=== PATIENT | male | born 1945 | race Caucasian/White ===

== ENCOUNTER 2022-03-07 10:16 | Inpatient (IN) | payer MEDICARE, BC ==
[2022-03-07] MEDS ORDERED: Furosemide 40 MG/4 ML VIAL ONE (10:43)
[2022-03-07 10:47] LABS: Hemoglobin 10.5 g/dL (14.0-18.0); Mean Corpuscular HGB CONC 31.2 g/dL (32.0-36.0); Mean Corpuscular Hemoglobin 38.1 pg (27.0-31.0); Mean Platelet Volume 9.5 fL (7.4-10.4); Platelet Count 277 thou/uL (130-400); RBC Distribution Width 16.7 % (11.5-14.5); Red Blood Cell (RBC) Count 2.76 mill/uL (4.70-6.10); White Blood Cell (WBC) Count 4.5 thou/uL (4.8-10.8)
[2022-03-07 11:11] LABS: ALT (SGPT) 39 U/L (8-55); AST (SGOT) 105 U/L (5-34); Albumin 3.9 g/dL (3.4-4.8); Alkaline Phosphatase 69 U/L (40-110); Anion Gap 17 mmol/L (10-20); BUN (Urea Nitrogen) 88 mg/dL (8.4-25.7); Bilirubin, Total 1.4 mg/dL (0.2-1.2); Calc. Creatinine Clearance 0 mL/min (70-130); Calcium 9.3 mg/dL (7.8-10.44); Carbon Dioxide 25 mmol/L (23-31); Chloride 93 mmol/L (98-107); Globulin 3.4 g/dL (2.4-3.5); Glucose 172 mg/dL (83-110); Potassium 5.7 mmol/L (3.5-5.1); Protein, Total 7.3 g/dL (5.8-8.1); Sodium 129 mmol/L (136-145)
[2022-03-07 11:29] LABS: Band 2 % (5-11); Lymphocytes 17 % (21-51); MDiff Complete? YES; Macrocytosis MODERATE=16-30 cells (100X) (0-5/hpf); Monocytes 13 % (0-10); Neutrophil 68 % (42-75); Platelet Morphology Comment Appears Adequate; Polychromasia MODERATE = 3-4 cells (100X) (0-2/hpf)
[2022-03-07] MEDS ORDERED: Sodium Bicarb 50 MEQ/50 ML Abboject 8.4% SYRINGE ONE (12:06)
[2022-03-07] MEDS ORDERED: Sodium Bicarbonate 2.5 MEQ/5 ML VIAL ONE (12:06)
[2022-03-07 12:27] LABS: CKMB 2.4 ng/mL (0-6.6)
[2022-03-07 12:35] LABS: Bacteria/HPF None Seen HPF (None Seen); Bilirubin Negative (Negative); Blood, Urine 1+ (Negative); Clarity Clear (Clear); Glucose, Urine (Dipstick) Normal (Negative); Ketone, Urine Negative (Negative); Leukocyte Negative Leu/uL (Negative); Nitrite Negative (Negative); Protein, Urine (Dipstick) 20 mg/dL (Neg-Trace); RBC/HPF 0-3 HPF (0-3); Specific Gravity, Urine 1.012 (1.002-1.036); Squamous Epithelial 0-3 HPF (0-3); Urobilinogen Normal mg/dL (Less than 2); WBC/HPF 0-3 HPF (0-3)
[2022-03-07] MEDS ORDERED: LOKELMA 10 GM PACKET PO SCH (13:00)
[2022-03-07] MEDS ORDERED: Acetaminophen 325 MG TAB PO PRN (13:35)
[2022-03-07] MEDS ORDERED: Ondansetron PF 4 MG/2 ML Vial IVP PRN (13:35)
[2022-03-07] MEDS ORDERED: Heparin 5,000 UNITS/ML VIAL SC SCH (15:00)
[2022-03-07 16:04] LABS: Hemoglobin A1c 7.4 % (4.0-6.0)
[2022-03-07] MEDS ORDERED: Furosemide 20 MG/2 ML VIAL SLOW IVP SCH (17:00)
[2022-03-07] MEDS ORDERED: Furosemide 40 MG/4 ML VIAL SLOW IVP SCH (17:00)
[2022-03-07 18:20] LABS: ALT (SGPT) 37 U/L (8-55); AST (SGOT) 96 U/L (5-34); Albumin 3.8 g/dL (3.4-4.8); Alkaline Phosphatase 70 U/L (40-110); Anion Gap 15 mmol/L (10-20); BUN (Urea Nitrogen) 91 mg/dL (8.4-25.7); Bilirubin, Total 1.2 mg/dL (0.2-1.2); Calc. Creatinine Clearance 26 mL/min (70-130); Calcium 9.2 mg/dL (7.8-10.44); Carbon Dioxide 32 mmol/L (23-31); Chloride 91 mmol/L (98-107); Globulin 3.2 g/dL (2.4-3.5); Glucose 315 mg/dL (83-110); Magnesium 1.8 mg/dL (1.6-2.6); Sodium 133 mmol/L (136-145)
[2022-03-07 18:24] LABS: Troponin I 0.044 ng/mL (< 0.028)
[2022-03-07] MEDS: Heparin 5,000 UNITS/ML VIAL SC SCH ×2 (18:29→21:06)
[2022-03-07] MEDS: Metoprolol Tartrate 25 MG TAB PO SCH (21:06)
[2022-03-07] MEDS: Atorvastatin Calcium 40 MG TAB PO SCH (21:07)
[2022-03-08 00:10] LABS: SARS-CoV-2 PCR by NAA Not Detected (NotDetected)
[2022-03-08 04:47] LABS: ALT (SGPT) 36 U/L (8-55); AST (SGOT) 114 U/L (5-34); Albumin 3.7 g/dL (3.4-4.8); Alkaline Phosphatase 67 U/L (40-110); Anion Gap 16 mmol/L (10-20); BUN (Urea Nitrogen) 79 mg/dL (8.4-25.7); Bilirubin, Total 1.1 mg/dL (0.2-1.2); Calc. Creatinine Clearance 32 mL/min (70-130); Calcium 9.2 mg/dL (7.8-10.44); Carbon Dioxide 30 mmol/L (23-31); Chloride 94 mmol/L (98-107); Globulin 3.2 g/dL (2.4-3.5); Glucose 284 mg/dL (83-110); Potassium 5.4 mmol/L (3.5-5.1); Protein, Total 6.9 g/dL (5.8-8.1); Sodium 135 mmol/L (136-145)
[2022-03-08 04:55] LABS: Anisocytosis SLIGHT = 6-15 cells (100X) (0-5/hpf); Band 1 % (5-11); Basophilic Stippling SLIGHT = 1-2 cells (100X) (None Seen); Hemoglobin 10.3 g/dL (14.0-18.0); Hypochromia SLIGHT = 6-15 cells (100X) (0-5/hpf); Lymphocytes 12 % (21-51); MDiff Complete? YES; Mean Corpuscular HGB CONC 30.5 g/dL (32.0-36.0); Mean Corpuscular Hemoglobin 38.2 pg (27.0-31.0); Mean Platelet Volume 9.5 fL (7.4-10.4); Metamyelocyte 1 % (0-0); Monocytes 30 % (0-10); Neutrophil 53 % (42-75); Nucleated RBC 1 % (0); Platelet Count 267 thou/uL (130-400); Platelet Morphology Comment Appears Adequate; Polychromasia SLIGHT = 2-3 cells (100X) (0-2/hpf); RBC Distribution Width 16.5 % (11.5-14.5); Red Blood Cell (RBC) Count 2.69 mill/uL (4.70-6.10)
[2022-03-08] MEDS ORDERED: Furosemide 20 MG/2 ML VIAL SLOW IVP SCH (06:00)
[2022-03-08] MEDS ORDERED: Furosemide 40 MG/4 ML VIAL SLOW IVP SCH (06:00)
[2022-03-08 10:57] LABS: Actual Bicarbonate (HCO3a) 43.6 mEq/L (22-28); Base Excess (BEa) 9.8 mEq/L (-2.0 to +3.0); Calcium, Ionized (arterial) 1.26 mmol/L (1.12-1.30); Carboxyhemoglobin (COHb) 3.5 gm% (0.0-3.0); Hemoglobin (Hb) 11.2 g/dL (14.0-18.0); O2 Tension (PaO2), arterial 124.2 mmHg (> 70.0); Potassium - ABG Lab 5.32 mmol/L (3.70-5.30)
[2022-03-08 11:05] LABS: CO2 Tension 145.4 mmHg (35.0-45.0)
[2022-03-08 11:06] LABS: Puncture Site RRA
[2022-03-08] MEDS: Heparin 5,000 UNITS/ML VIAL SC SCH ×3 (11:21→22:00)
[2022-03-08] MEDS: Finasteride 5 MG TAB PO SCH (11:21)
[2022-03-08] MEDS: Clopidogrel Bisulfate 75 MG TAB PO SCH (11:21)
[2022-03-08] MEDS: Aspirin 81 mg Enteric Coated Tablet PO SCH (11:21)
[2022-03-08] MEDS: Metoprolol Tartrate 25 MG TAB PO SCH ×2 (11:21→22:01)
[2022-03-08] MEDS: Dextrose 5 %-0.45 % NaCl 1,000 ML IV SCH (12:15)
[2022-03-08 13:31] LABS: Actual Bicarbonate (HCO3a) 38.9 mEq/L (22-28); Base Excess (BEa) 7.9 mEq/L (-2.0 to +3.0); Calcium, Ionized (arterial) 1.24 mmol/L (1.12-1.30); Carboxyhemoglobin (COHb) 3.6 gm% (0.0-3.0); Hemoglobin (Hb) 10.4 g/dL (14.0-18.0); Potassium - ABG Lab 5.16 mmol/L (3.70-5.30)
[2022-03-08 13:32] LABS: CO2 Tension 105.5 mmHg (35.0-45.0); Puncture Site RRA; pH, Arterial 7.19 (7.35-7.45)
[2022-03-08 13:33] LABS: ALV-art Gradient 62.925 mmHg (0-20)
[2022-03-08 16:08] LABS: Actual Bicarbonate (HCO3a) 32.5 mEq/L (22-28); Calcium, Ionized (arterial) 1.23 mmol/L (1.12-1.30); Carboxyhemoglobin (COHb) 3.5 gm% (0.0-3.0); Hemoglobin (Hb) 10.7 g/dL (14.0-18.0); O2 Tension (PaO2), arterial 78.6 mmHg (> 70.0); Potassium - ABG Lab 4.81 mmol/L (3.70-5.30)
[2022-03-08 16:12] LABS: CO2 Tension 91.7 mmHg (35.0-45.0); Puncture Site RRA; pH, Arterial 7.17 (7.35-7.45)
[2022-03-08 16:13] LABS: ALV-art Gradient 163.275 mmHg (0-20)
[2022-03-08] MEDS: methylPREDNISolone Sod Succ 40 MG VIAL IVP SCH (17:39)
[2022-03-08] MEDS: Atorvastatin Calcium 40 MG TAB PO SCH (22:01)
[2022-03-09] MEDS: methylPREDNISolone Sod Succ 40 MG VIAL IVP SCH ×4 (00:55→18:37)
[2022-03-09 04:20] LABS: BUN (Urea Nitrogen) 56 mg/dL (8.4-25.7); Calc. Creatinine Clearance 49 mL/min (70-130); Calcium 8.7 mg/dL (7.8-10.44); Glucose 296 mg/dL (83-110)
[2022-03-09 04:29] LABS: Anion Gap 13 mmol/L (10-20); Carbon Dioxide 36 mmol/L (23-31); Chloride 93 mmol/L (98-107); Potassium 5.1 mmol/L (3.5-5.1); Sodium 137 mmol/L (136-145)
[2022-03-09] MEDS ORDERED: Dextrose 50% Abboject 50 ML SYRINGE SLOW IVP PRN (04:41)
[2022-03-09] MEDS ORDERED: Dextrose 5% in Water 1,000 ML IV PRN (04:41)
[2022-03-09] MEDS ORDERED: HumaLOG 300 UNITS/3 ML VIAL SC PRN (04:41)
[2022-03-09 05:09] LABS: Band 13 % (5-11); Hemoglobin 8.9 g/dL (14.0-18.0); Lymphocytes 10 % (21-51); MDiff Complete? YES; Mean Corpuscular HGB CONC 30.3 g/dL (32.0-36.0); Mean Corpuscular Hemoglobin 37.9 pg (27.0-31.0); Mean Platelet Volume 9.5 fL (7.4-10.4); Monocytes 11 % (0-10); Neutrophil 66 % (42-75); Nucleated RBC 1 % (0); Platelet Count 170 thou/uL (130-400); Red Blood Cell (RBC) Count 2.33 mill/uL (4.70-6.10); White Blood Cell (WBC) Count 7.4 thou/uL (4.8-10.8)
[2022-03-09] MEDS: Dextrose 5 %-0.45 % NaCl 1,000 ML IV SCH (05:15)
[2022-03-09] MEDS: HumaLOG 300 UNITS/3 ML VIAL SC PRN ×4 (05:51→21:04)
[2022-03-09 07:33] LABS: Actual Bicarbonate (HCO3a) 41.6 mEq/L (22-28); Base Excess (BEa) 13.7 mEq/L (-2.0 to +3.0); CO2 Tension 76.5 mmHg (35.0-45.0); Calcium, Ionized (arterial) 1.19 mmol/L (1.12-1.30); Carboxyhemoglobin (COHb) 2.2 gm% (0.0-3.0); Hemoglobin (Hb) 9.4 g/dL (14.0-18.0); O2 Tension (PaO2), arterial 66.1 mmHg (> 70.0); Potassium - ABG Lab 5.02 mmol/L (3.70-5.30); Puncture Site RRA; pH, Arterial 7.35 (7.35-7.45)
[2022-03-09 07:34] LABS: ALV-art Gradient 123.475 mmHg (0-20)
[2022-03-09] MEDS: Aspirin 81 mg Enteric Coated Tablet PO SCH (09:16)
[2022-03-09] MEDS: Finasteride 5 MG TAB PO SCH (09:16)
[2022-03-09] MEDS: Clopidogrel Bisulfate 75 MG TAB PO SCH (09:16)
[2022-03-09] MEDS: Heparin 5,000 UNITS/ML VIAL SC SCH ×3 (09:17→21:00)
[2022-03-09] MEDS: Metoprolol Tartrate 25 MG TAB PO SCH ×2 (09:17→20:58)
[2022-03-09] MEDS: Sodium Chloride 0.45% 1,000 ML IV SCH (12:37)
[2022-03-09] MEDS: Atorvastatin Calcium 40 MG TAB PO SCH (21:14)
[2022-03-10] MEDS: methylPREDNISolone Sod Succ 40 MG VIAL IVP SCH ×4 (00:12→21:50)
[2022-03-10] MEDS: Sodium Chloride 0.45% 1,000 ML IV SCH (05:37)
[2022-03-10] MEDS: HumaLOG 300 UNITS/3 ML VIAL SC PRN ×4 (06:20→23:17)
[2022-03-10 07:59] LABS: #Lymphocytes 0.3 thou/uL (1.20-3.40); #Monocytes 0.4 thou/uL (0.11-0.59); #Neutrophils 4.6 thou/uL (1.40-6.50); %Basophils 0.4 % (0.0-1.0); %Lymphocytes 4.9 % (21.0-51.0); %Monocytes 8.1 % (0.0-10.0); %Neutrophils 86.7 % (42.0-75.0); Hemoglobin 9.4 g/dL (14.0-18.0); Mean Corpuscular HGB CONC 30.5 g/dL (32.0-36.0); Mean Corpuscular Hemoglobin 38.1 pg (27.0-31.0); Mean Platelet Volume 9.8 fL (7.4-10.4); Platelet Count 178 thou/uL (130-400); Red Blood Cell (RBC) Count 2.45 mill/uL (4.70-6.10); White Blood Cell (WBC) Count 5.3 thou/uL (4.8-10.8)
[2022-03-10 08:21] LABS: Anion Gap 16 mmol/L (10-20); BUN (Urea Nitrogen) 46 mg/dL (8.4-25.7); Calc. Creatinine Clearance 53 mL/min (70-130); Calcium 9.2 mg/dL (7.8-10.44); Carbon Dioxide 30 mmol/L (23-31); Chloride 93 mmol/L (98-107); Glucose 327 mg/dL (83-110); Potassium 4.8 mmol/L (3.5-5.1); Sodium 134 mmol/L (136-145)
[2022-03-10] MEDS: Clopidogrel Bisulfate 75 MG TAB PO SCH (09:15)
[2022-03-10] MEDS: Finasteride 5 MG TAB PO SCH (09:16)
[2022-03-10] MEDS: Aspirin 81 mg Enteric Coated Tablet PO SCH (09:16)
[2022-03-10] MEDS: Heparin 5,000 UNITS/ML VIAL SC SCH ×3 (09:17→21:51)
[2022-03-10] MEDS: Metoprolol Tartrate 25 MG TAB PO SCH ×2 (09:17→21:51)
[2022-03-10] MEDS: Atorvastatin Calcium 40 MG TAB PO SCH (21:51)
[2022-03-11 05:03] LABS: Anion Gap 12 mmol/L (10-20); BUN (Urea Nitrogen) 37 mg/dL (8.4-25.7); Calc. Creatinine Clearance 67 mL/min (70-130); Carbon Dioxide 34 mmol/L (23-31); Chloride 99 mmol/L (98-107); Glucose 244 mg/dL (83-110); Potassium 4.7 mmol/L (3.5-5.1); Sodium 140 mmol/L (136-145)
[2022-03-11] MEDS: Sodium Chloride 0.45% 1,000 ML IV SCH (05:16)
[2022-03-11] MEDS: methylPREDNISolone Sod Succ 40 MG VIAL IVP SCH (05:16)
[2022-03-11] MEDS: HumaLOG 300 UNITS/3 ML VIAL SC PRN ×3 (05:47→18:01)
[2022-03-11] MEDS: Metoprolol Tartrate 25 MG TAB PO SCH ×2 (08:42→20:08)
[2022-03-11] MEDS: Aspirin 81 mg Enteric Coated Tablet PO SCH (08:42)
[2022-03-11] MEDS: Clopidogrel Bisulfate 75 MG TAB PO SCH (08:42)
[2022-03-11] MEDS: Finasteride 5 MG TAB PO SCH (08:42)
[2022-03-11] MEDS: Heparin 5,000 UNITS/ML VIAL SC SCH ×3 (08:42→20:08)
[2022-03-11] MEDS ORDERED: Tamsulosin HCl 0.4 MG CAP PO SCH (11:30)
[2022-03-11] MEDS: Atorvastatin Calcium 40 MG TAB PO SCH (20:08)
[2022-03-11] MEDS: Insulin Glargine 30 UNITS/0.3 ML VIAL SC SCH (20:09)
[2022-03-12] MEDS: Sodium Chloride 0.45% 1,000 ML IV SCH (02:03)
[2022-03-12] MEDS: HumaLOG 300 UNITS/3 ML VIAL SC PRN ×3 (06:08→18:00)
[2022-03-12] MEDS: Aspirin 81 mg Enteric Coated Tablet PO SCH (09:21)
[2022-03-12] MEDS: predniSONE 20 MG TAB PO SCH (09:22)
[2022-03-12] MEDS: Metoprolol Tartrate 25 MG TAB PO SCH ×2 (09:22→21:52)
[2022-03-12] MEDS: Tamsulosin HCl 0.4 MG CAP PO SCH (09:22)
[2022-03-12] MEDS: Heparin 5,000 UNITS/ML VIAL SC SCH ×3 (09:22→21:52)
[2022-03-12] MEDS: Finasteride 5 MG TAB PO SCH (09:22)
[2022-03-12] MEDS: Clopidogrel Bisulfate 75 MG TAB PO SCH (09:22)
[2022-03-12] MEDS: Lisinopril 10 MG TAB PO SCH (09:22)
[2022-03-12] MEDS: Atorvastatin Calcium 40 MG TAB PO SCH (21:52)
[2022-03-12] MEDS: Insulin Glargine 30 UNITS/0.3 ML VIAL SC SCH (21:52)
[2022-03-13] MEDS: HumaLOG 300 UNITS/3 ML VIAL SC PRN ×3 (05:50→21:27)
[2022-03-13] MEDS: Finasteride 5 MG TAB PO SCH (09:57)
[2022-03-13] MEDS: Metoprolol Tartrate 25 MG TAB PO SCH ×2 (09:57→21:27)
[2022-03-13] MEDS: Aspirin 81 mg Enteric Coated Tablet PO SCH (09:57)
[2022-03-13] MEDS: Heparin 5,000 UNITS/ML VIAL SC SCH (09:57)
[2022-03-13] MEDS: Clopidogrel Bisulfate 75 MG TAB PO SCH (09:57)
[2022-03-13] MEDS: Tamsulosin HCl 0.4 MG CAP PO SCH (09:57)
[2022-03-13] MEDS: predniSONE 20 MG TAB PO SCH (09:57)
[2022-03-13] MEDS: Lisinopril 10 MG TAB PO SCH (09:57)
[2022-03-13] MEDS ORDERED: Furosemide 40 MG/4 ML VIAL SLOW IVP SCH (12:30)
[2022-03-13 15:08] LABS: Anion Gap 13 mmol/L (10-20); BUN (Urea Nitrogen) 38 mg/dL (8.4-25.7); Calc. Creatinine Clearance 43 mL/min (70-130); Calcium 9.4 mg/dL (7.8-10.44); Carbon Dioxide 30 mmol/L (23-31); Chloride 98 mmol/L (98-107); Glucose 401 mg/dL (83-110); Potassium 4.4 mmol/L (3.5-5.1); Sodium 137 mmol/L (136-145)
[2022-03-13 15:22] LABS: Band 8 % (5-11); Hemoglobin 9.7 g/dL (14.0-18.0); Hypochromia SLIGHT = 6-15 cells (100X) (0-5/hpf); Lymphocytes 7 % (21-51); MDiff Complete? YES; Macrocytosis MODERATE=16-30 cells (100X) (0-5/hpf); Mean Corpuscular HGB CONC 30.9 g/dL (32.0-36.0); Mean Corpuscular Hemoglobin 38.2 pg (27.0-31.0); Mean Platelet Volume 10.9 fL (7.4-10.4); Monocytes 4 % (0-10); Neutrophil 81 % (42-75); Nucleated RBC 1 % (0); Ovalocytes SLIGHT = 2-5 cells (100X) (0-1/hpf); Platelet Count 135 thou/uL (130-400); Platelet Morphology Comment Appears Adequate; Polychromasia SLIGHT = 2-3 cells (100X) (0-2/hpf); RBC Distribution Width 15.3 % (11.5-14.5); Red Blood Cell (RBC) Count 2.54 mill/uL (4.70-6.10); Stomatocytes SLIGHT = 2-5 cells (100X) (0-1/hpf); White Blood Cell (WBC) Count 2.8 thou/uL (4.8-10.8)
[2022-03-13 15:25] VITALS: BMI 22.4
[2022-03-13] MEDS ORDERED: Insulin Glargine 30 UNITS/0.3 ML VIAL SC SCH (21:00)
[2022-03-13] MEDS: Atorvastatin Calcium 40 MG TAB PO SCH (21:27)
[2022-03-14] MEDS: HumaLOG 300 UNITS/3 ML VIAL SC PRN ×2 (05:38→11:24)
[2022-03-14 05:39] LABS: Hemoglobin 9.3 g/dL (14.0-18.0); Mean Corpuscular HGB CONC 31.3 g/dL (32.0-36.0); Mean Corpuscular Hemoglobin 38.6 pg (27.0-31.0); Mean Platelet Volume 10.6 fL (7.4-10.4); Platelet Count 127 thou/uL (130-400); RBC Distribution Width 15.4 % (11.5-14.5); Red Blood Cell (RBC) Count 2.42 mill/uL (4.70-6.10)
[2022-03-14 05:40] LABS: Anion Gap 15 mmol/L (10-20); BUN (Urea Nitrogen) 39 mg/dL (8.4-25.7); Calc. Creatinine Clearance 46 mL/min (70-130); Calcium 9.1 mg/dL (7.8-10.44); Carbon Dioxide 30 mmol/L (23-31); Chloride 101 mmol/L (98-107); Glucose 293 mg/dL (83-110); Potassium 4.6 mmol/L (3.5-5.1); Sodium 141 mmol/L (136-145)
[2022-03-14 05:42] LABS: Band 3 % (5-11); Lymphocytes 27 % (21-51); MDiff Complete? YES; Macrocytosis MODERATE=16-30 cells (100X) (0-5/hpf); Monocytes 23 % (0-10); Neutrophil 47 % (42-75); Nucleated RBC 1 % (0)
[2022-03-14] MEDS: Aspirin 81 mg Enteric Coated Tablet PO SCH (08:35)
[2022-03-14] MEDS: Metoprolol Tartrate 25 MG TAB PO SCH (08:35)
[2022-03-14] MEDS: Finasteride 5 MG TAB PO SCH (08:35)
[2022-03-14] MEDS: Lisinopril 10 MG TAB PO SCH (08:35)
[2022-03-14] MEDS: predniSONE 20 MG TAB PO SCH (08:35)
[2022-03-14] MEDS: Clopidogrel Bisulfate 75 MG TAB PO SCH (08:35)
[2022-03-14] MEDS: Tamsulosin HCl 0.4 MG CAP PO SCH (08:35)
[2022-03-14 11:52] VITALS: BP 120/58; TEMP 97.8
[2022-03-14 15:59] LABS: SARS-CoV-2 PCR by NAA Not Detected (NotDetected)
== END 2022-03-14 15:13 | disposition home health service (06) | DRG 291 ==
LOC: ERS 10:16 → SUATTDRO 10:16 → 2NO 13:17 → CCU 03-08 11:57 → 2NO 03-10 14:24
PROVIDERS: ADMIT Emergency Medicine; ATTEND Emergency Medicine
PROC: 5A09357 Assistance with Respiratory Ventilation, Less than 24 Consecutive Hours, Continuous Positive Airway Pressure (ICD-10-PCS; principal; 2022-03-08)
DX: I11.0 Hypertensive heart disease with heart failure (principal); I50.43 Acute on chronic combined systolic (congestive) and diastolic (congestive) heart failure; G93.41 Metabolic encephalopathy; J96.22 Acute and chronic respiratory failure with hypercapnia; J96.21 Acute and chronic respiratory failure with hypoxia; J44.1 Chronic obstructive pulmonary disease with (acute) exacerbation; I47.2 Ventricular tachycardia; N17.9 Acute kidney failure, unspecified; E87.1 Hypo-osmolality and hyponatremia; I42.9 Cardiomyopathy, unspecified; Z20.822 Contact with and (suspected) exposure to COVID-19; E78.5 Hyperlipidemia, unspecified; I25.10 Atherosclerotic heart disease of native coronary artery without angina pectoris; F17.210 Nicotine dependence, cigarettes, uncomplicated; E87.5 Hyperkalemia; E11.65 Type 2 diabetes mellitus with hyperglycemia; N40.0 Benign prostatic hyperplasia without lower urinary tract symptoms; E11.51 Type 2 diabetes mellitus with diabetic peripheral angiopathy without gangrene; I34.0 Nonrheumatic mitral (valve) insufficiency; Z95.810 Presence of automatic (implantable) cardiac defibrillator; Z79.899 Other long term (current) drug therapy; Z79.82 Long term (current) use of aspirin; Z86.74 Personal history of sudden cardiac arrest; Z79.02 Long term (current) use of antithrombotics/antiplatelets; Z98.42 Cataract extraction status, left eye; Z98.41 Cataract extraction status, right eye; I25.2 Old myocardial infarction; Z71.6 Tobacco abuse counseling
CPT/HCPCS: 36415; 36416; 36600; 70450; 71045; 76770; 80048; 80053; 81003; 81015; 82553; 82805; 83036; 83735; 83880; 84443; 84484; 85025; 87040; 93005; 93010; 93306; 93970; 94640; 94660; 96374; 96375; J1644; J1815; J1940; J2920; J3475; J3490; J7042; J7512; J7620; U0003; U0005

== ENCOUNTER 2022-03-17 08:49 | Inpatient (IN) | payer MEDICARE, BC ==
[2022-03-17 09:49] LABS: Mean Corpuscular HGB CONC 30.7 g/dL (32.0-36.0); Mean Corpuscular Hemoglobin 37.8 pg (27.0-31.0); Mean Platelet Volume 10.1 fL (7.4-10.4); Platelet Count 190 thou/uL (130-400); RBC Distribution Width 15.3 % (11.5-14.5); Red Blood Cell (RBC) Count 2.92 mill/uL (4.70-6.10); White Blood Cell (WBC) Count 11.5 thou/uL (4.8-10.8)
[2022-03-17 10:01] LABS: INR-International Normal Ratio 1.1; Prothrombin Time 14.7 sec (12.0-14.7)
[2022-03-17 10:16] LABS: ALT (SGPT) 44 U/L (8-55); AST (SGOT) 45 U/L (5-34); Albumin 3.9 g/dL (3.4-4.8); Alkaline Phosphatase 61 U/L (40-110); Anion Gap 15 mmol/L (10-20); BUN (Urea Nitrogen) 31 mg/dL (8.4-25.7); Bilirubin, Total 1.1 mg/dL (0.2-1.2); Calc. Creatinine Clearance 0 mL/min (70-130); Calcium 9.4 mg/dL (7.8-10.44); Carbon Dioxide 31 mmol/L (23-31); Chloride 97 mmol/L (98-107); Globulin 2.6 g/dL (2.4-3.5); Glucose 200 mg/dL (83-110); Lipase 29 U/L (8-78); Magnesium 1.2 mg/dL (1.6-2.6); Potassium 4.1 mmol/L (3.5-5.1); Protein, Total 6.5 g/dL (5.8-8.1); Sodium 139 mmol/L (136-145)
[2022-03-17 10:22] LABS: Anisocytosis SLIGHT = 6-15 cells (100X) (0-5/hpf); Lymphocytes 5 % (21-51); MDiff Complete? YES; Macrocytosis SLIGHT = 6-15 cells (100X) (0-5/hpf); Monocytes 22 % (0-10); Neutrophil 71 % (42-75); Polychromasia SLIGHT = 2-3 cells (100X) (0-2/hpf)
[2022-03-17 10:44] LABS: CKMB 2.1 ng/mL (0-6.6)
[2022-03-17 11:06] LABS: Specific Gravity, Urine 1.025 (1.005-1.030); pH, Urine 6.5 (5.0-9.0)
[2022-03-17 11:07] LABS: Clarity Hazy (Clear); Glucose, Urine (Dipstick) Unable to Interpret mg/dL (Negative); Ketone, Urine Unable to Interpret mg/dL (Negative); Leukocyte Unable to Interpret (Negative); Nitrite Unable to Interpret (Negative); Protein, Urine (Dipstick) Unable to Interpret mg/dL (Neg-Trace)
[2022-03-17 11:08] LABS: Bacteria/HPF 1+ HPF (None Seen); Bilirubin Unable to Interpret (Negative); Blood, Urine Unable to Interpret (Negative); RBC/HPF Greater than 50 HPF (0-3); Squamous Epithelial None Seen HPF (0-3); Urobilinogen UNABLE TO INTERPRET mg/dL (Less than 2)
[2022-03-17] MEDS ORDERED: Magnesium 2 GM/50 ML BAG (IN WATER) ONE (13:10)
[2022-03-17] MEDS ORDERED: cefTRIAXone\\ROCEPHIN 1 GM VIAL ONE (13:10)
[2022-03-17] MEDS ORDERED: Ondansetron PF 4 MG/2 ML Vial IVP PRN (14:22)
[2022-03-17] MEDS ORDERED: Acetaminophen 650 MG Suppository PR PRN (14:22)
[2022-03-17] MEDS ORDERED: Acetaminophen 325 MG TAB PO PRN (14:22)
[2022-03-17] MEDS ORDERED: Ondansetron ODT 4 MG TAB PO PRN (14:22)
[2022-03-17] MEDS ORDERED: Dextrose 50% Abboject 50 ML SYRINGE SLOW IVP PRN (15:33)
[2022-03-17] MEDS ORDERED: Dextrose 5% in Water 1,000 ML IV PRN (15:33)
[2022-03-17 15:59] LABS: Hemoglobin 9.6 g/dL (14.0-18.0)
[2022-03-17] MEDS: Insulin Regular 300 UNITS/3 ML VIAL SC PRN ×2 (18:17→21:29)
[2022-03-17 21:15] LABS: Hemoglobin 8.9 g/dL (14.0-18.0)
[2022-03-17] MEDS: Atorvastatin Calcium 40 MG TAB PO SCH (21:27)
[2022-03-18 02:26] LABS: Hemoglobin 8.7 g/dL (14.0-18.0)
[2022-03-18 02:35] LABS: Hemoglobin 8.8 g/dL (14.0-18.0); Mean Corpuscular HGB CONC 31.4 g/dL (32.0-36.0); Mean Corpuscular Hemoglobin 38.9 pg (27.0-31.0); Mean Platelet Volume 10.4 fL (7.4-10.4); Platelet Count 146 thou/uL (130-400); Red Blood Cell (RBC) Count 2.25 mill/uL (4.70-6.10); White Blood Cell (WBC) Count 5.1 thou/uL (4.8-10.8)
[2022-03-18 02:50] LABS: Anion Gap 10 mmol/L (10-20); BUN (Urea Nitrogen) 37 mg/dL (8.4-25.7); Calc. Creatinine Clearance 48 mL/min (70-130); Calcium 8.8 mg/dL (7.8-10.44); Carbon Dioxide 33 mmol/L (23-31); Chloride 99 mmol/L (98-107); Glucose 278 mg/dL (83-110); Potassium 4.3 mmol/L (3.5-5.1); Sodium 138 mmol/L (136-145)
[2022-03-18 03:16] LABS: Band 16 % (5-11); Hypochromia SLIGHT = 6-15 cells (100X) (0-5/hpf); Lymphocytes 19 % (21-51); MDiff Complete? YES; Macrocytosis SLIGHT = 6-15 cells (100X) (0-5/hpf); Monocytes 9 % (0-10); Neutrophil 54 % (42-75); Nucleated RBC 0 % (0); Platelet Morphology Comment Appears Adequate; Reactive Lymphocytes 2 % (0-10)
[2022-03-18] MEDS: Insulin Regular 300 UNITS/3 ML VIAL SC PRN ×4 (06:23→20:46)
[2022-03-18] MEDS: predniSONE 5 MG TAB PO SCH (08:03)
[2022-03-18] MEDS: Furosemide 20 MG TAB PO SCH (08:03)
[2022-03-18 08:22] LABS: Hemoglobin 9.6 g/dL (14.0-18.0)
[2022-03-18] MEDS ORDERED: Aspirin 81 mg Enteric Coated Tablet PO SCH (09:30)
[2022-03-18 09:49] LABS: Iron 58 ug/dL (65-175); Iron Binding Capacity, Total 230 mcg/dL (261-462)
[2022-03-18 10:14] LABS: Ferritin 166.39 ng/mL (22-322)
[2022-03-18 18:02] LABS: Glucose 540 mg/dL (83-110)
[2022-03-18 20:14] LABS: Hemoglobin 8.4 g/dL (14.0-18.0)
[2022-03-18 20:28] LABS: Glucose POC Confirmation 545 mg/dl (83-110)
[2022-03-18] MEDS: Atorvastatin Calcium 40 MG TAB PO SCH (20:46)
[2022-03-18] MEDS: cefTRIAXone\\ROCEPHIN 1 GM in Sodium Chloride 0.9% 100 ML IVPB SCH (20:46)
[2022-03-18] MEDS ORDERED: Insulin Glargine 30 UNITS/0.3 ML VIAL SC SCH (21:00)
[2022-03-19 06:04] LABS: Anion Gap 12 mmol/L (10-20); BUN (Urea Nitrogen) 31 mg/dL (8.4-25.7); Calc. Creatinine Clearance 64 mL/min (70-130); Calcium 8.5 mg/dL (7.8-10.44); Carbon Dioxide 29 mmol/L (23-31); Chloride 101 mmol/L (98-107); Glucose 163 mg/dL (83-110); Potassium 4.3 mmol/L (3.5-5.1); Sodium 138 mmol/L (136-145)
[2022-03-19 07:07] LABS: Hemoglobin 8.8 g/dL (14.0-18.0); Mean Corpuscular HGB CONC 31.7 g/dL (32.0-36.0); Mean Corpuscular Hemoglobin 39.8 pg (27.0-31.0); Mean Platelet Volume 10.3 fL (7.4-10.4); Platelet Count 138 thou/uL (130-400); RBC Distribution Width 14.4 % (11.5-14.5); White Blood Cell (WBC) Count 3.9 thou/uL (4.8-10.8)
[2022-03-19 08:22] LABS: Band 4 % (5-11); Eosinophils 1 % (0-10); Lymphocytes 18 % (21-51); MDiff Complete? YES; Macrocytosis MODERATE=16-30 cells (100X) (0-5/hpf); Monocytes 23 % (0-10); Neutrophil 50 % (42-75); Ovalocytes SLIGHT = 2-5 cells (100X) (0-1/hpf); Platelet Morphology Comment Appears Adequate; Polychromasia SLIGHT = 2-3 cells (100X) (0-2/hpf); Reactive Lymphocytes 4 % (0-10)
[2022-03-19] MEDS: predniSONE 5 MG TAB PO SCH (09:00)
[2022-03-19] MEDS: Aspirin 81 mg Enteric Coated Tablet PO SCH (09:01)
[2022-03-19] MEDS: Furosemide 20 MG TAB PO SCH (09:01)
[2022-03-19] MEDS: Insulin Regular 300 UNITS/3 ML VIAL SC PRN ×3 (11:00→21:42)
[2022-03-19 14:13] VITALS: BMI 21.5
[2022-03-19] MEDS ORDERED: Electrolyte Replacement Protocol FS PRN (15:15)
[2022-03-19] MEDS ORDERED: Electrolyte Replacement Protocol 1 EACH FS SCH (15:15)
[2022-03-19] MEDS ORDERED: Metoprolol Tartrate 25 MG TAB PO SCH (15:15)
[2022-03-19 16:30] LABS: Troponin I 0.024 ng/mL (< 0.028)
[2022-03-19 16:33] LABS: Magnesium 1.7 mg/dL (1.6-2.6)
[2022-03-19] MEDS ORDERED: Magnesium Sulfate 4 GM in Sodium Chloride 0.9% 250 ML 250 ML IVPB SCH (17:00)
[2022-03-19] MEDS: cefTRIAXone\\ROCEPHIN 1 GM in Sodium Chloride 0.9% 100 ML IVPB SCH (17:05)
[2022-03-19] MEDS ORDERED: Insulin Regular 300 UNITS/3 ML VIAL SC PRN (17:12)
[2022-03-19] MEDS ORDERED: Insulin Glargine 30 UNITS/0.3 ML VIAL SC SCH (17:30)
[2022-03-19] MEDS: Magnesium 2 GM/50 ML(in water) 2 GM in Premix Bag 1 BAG IVPB SCH ×2 (17:31→18:13)
[2022-03-19] MEDS: Folic Acid 1 MG TAB PO SCH (21:42)
[2022-03-19] MEDS: Metoprolol Tartrate 25 MG TAB PO SCH (21:42)
[2022-03-19] MEDS: Atorvastatin Calcium 40 MG TAB PO SCH (21:42)
[2022-03-20 05:50] LABS: Anion Gap 11 mmol/L (10-20); BUN (Urea Nitrogen) 25 mg/dL (8.4-25.7); Calc. Creatinine Clearance 72 mL/min (70-130); Calcium 8.9 mg/dL (7.8-10.44); Carbon Dioxide 34 mmol/L (23-31); Chloride 99 mmol/L (98-107); Glucose 68 mg/dL (83-110); Magnesium 2.3 mg/dL (1.6-2.6); Potassium 4.3 mmol/L (3.5-5.1); Sodium 140 mmol/L (136-145)
[2022-03-20 06:06] LABS: Eosinophils 2 % (0-10); Hemoglobin 8.6 g/dL (14.0-18.0); Hypochromia SLIGHT = 6-15 cells (100X) (0-5/hpf); Lymphocytes 19 % (21-51); MDiff Complete? YES; Macrocytosis SLIGHT = 6-15 cells (100X) (0-5/hpf); Mean Corpuscular HGB CONC 31.4 g/dL (32.0-36.0); Mean Corpuscular Hemoglobin 38.8 pg (27.0-31.0); Mean Platelet Volume 10.1 fL (7.4-10.4); Monocytes 16 % (0-10); Neutrophil 61 % (42-75); Platelet Count 166 thou/uL (130-400); Platelet Morphology Comment Appears Adequate; RBC Distribution Width 14.5 % (11.5-14.5); Reactive Lymphocytes 2 % (0-10); Red Blood Cell (RBC) Count 2.22 mill/uL (4.70-6.10); White Blood Cell (WBC) Count 3.3 thou/uL (4.8-10.8)
[2022-03-20] MEDS ORDERED: predniSONE 5 MG TAB PO SCH (08:00)
[2022-03-20] MEDS ORDERED: Finasteride 5 MG TAB PO SCH (09:00)
[2022-03-20] MEDS: Aspirin 81 mg Enteric Coated Tablet PO SCH (09:08)
[2022-03-20] MEDS: Metoprolol Tartrate 25 MG TAB PO SCH (09:08)
[2022-03-20] MEDS: Folic Acid 1 MG TAB PO SCH (09:09)
[2022-03-20] MEDS: Furosemide 20 MG TAB PO SCH (09:09)
[2022-03-20 11:19] VITALS: TEMP 98.1
[2022-03-20] MEDS ORDERED: cefTRIAXone\\ROCEPHIN 1 GM in Sodium Chloride 0.9% 100 ML IVPB SCH (14:45)
[2022-03-20 15:08] VITALS: BP 143/63
[2022-03-20] MEDS ORDERED: Insulin Glargine 30 UNITS/0.3 ML VIAL SC SCH (21:00)
[2022-03-25] MEDS ORDERED: predniSONE 5 MG TAB PO SCH (08:00)
== END 2022-03-20 17:30 | disposition home or self-care (01) | DRG 689 ==
LOC: ERS 08:49 → 2SW 14:22 → OBSVTOIN 03-19 09:28
PROVIDERS: ADMIT Family Medicine; ATTEND Internal Medicine
PROC: 0T9B70Z Drainage of Bladder with Drainage Device, Via Natural or Artificial Opening (ICD-10-PCS; principal; 2022-03-17)
DX: N39.0 Urinary tract infection, site not specified (principal); I50.33 Acute on chronic diastolic (congestive) heart failure; J96.01 Acute respiratory failure with hypoxia; I47.2 Ventricular tachycardia; D62 Acute posthemorrhagic anemia; I13.0 Hypertensive heart and chronic kidney disease with heart failure and stage 1 through stage 4 chronic kidney disease, or unspecified chronic kidney disease; E78.5 Hyperlipidemia, unspecified; E11.51 Type 2 diabetes mellitus with diabetic peripheral angiopathy without gangrene; I25.10 Atherosclerotic heart disease of native coronary artery without angina pectoris; I25.5 Ischemic cardiomyopathy; F17.210 Nicotine dependence, cigarettes, uncomplicated; J44.9 Chronic obstructive pulmonary disease, unspecified; R31.0 Gross hematuria; I45.10 Unspecified right bundle-branch block; B96.20 Unspecified Escherichia coli [E. coli] as the cause of diseases classified elsewhere; N40.1 Benign prostatic hyperplasia with lower urinary tract symptoms; E11.22 Type 2 diabetes mellitus with diabetic chronic kidney disease; E83.42 Hypomagnesemia; D63.1 Anemia in chronic kidney disease; N18.30 Chronic kidney disease, stage 3 unspecified; Z79.82 Long term (current) use of aspirin; Z79.899 Other long term (current) drug therapy; Z79.84 Long term (current) use of oral hypoglycemic drugs; Z79.4 Long term (current) use of insulin; Z95.5 Presence of coronary angioplasty implant and graft; Z95.810 Presence of automatic (implantable) cardiac defibrillator; Z98.890 Other specified postprocedural states; I25.2 Old myocardial infarction
CPT/HCPCS: 36415; 36416; 51703; 71045; 74176; 80048; 80053; 81003; 81015; 82553; 82607; 82728; 82746; 83540; 83550; 83690; 83735; 83880; 84484; 85025; 85610; 85730; 86850; 86900; 86901; 87077; 87086; 87186; 93005; 94760; 96365; 96367; 96376; G0378; J0696; J1815; J3475; J3490; J7512

== ENCOUNTER 2022-03-25 04:06 | Inpatient (IN) | payer MEDICARE, BC ==
[2022-03-25 05:00] LABS: ALT (SGPT) 24 U/L (8-55); AST (SGOT) 29 U/L (5-34); Albumin 3.2 g/dL (3.4-4.8); Alkaline Phosphatase 63 U/L (40-110); Anion Gap 12 mmol/L (10-20); BUN (Urea Nitrogen) 40 mg/dL (8.4-25.7); Bilirubin, Total 0.7 mg/dL (0.2-1.2); Calc. Creatinine Clearance 0 mL/min (70-130); Calcium 8.7 mg/dL (7.8-10.44); Carbon Dioxide 28 mmol/L (23-31); Chloride 97 mmol/L (98-107); Globulin 2.8 g/dL (2.4-3.5); Glucose 365 mg/dL (83-110); Lipase 26 U/L (8-78); Potassium 4.4 mmol/L (3.5-5.1); Sodium 133 mmol/L (136-145)
[2022-03-25 05:12] LABS: Hemoglobin 8.8 g/dL (14.0-18.0); Mean Corpuscular HGB CONC 30.8 g/dL (32.0-36.0); Mean Corpuscular Hemoglobin 36.9 pg (27.0-31.0); Mean Platelet Volume 9.6 fL (7.4-10.4); Platelet Count 332 thou/uL (130-400); RBC Distribution Width 14.4 % (11.5-14.5)
[2022-03-25 05:14] LABS: White Blood Cell (WBC) Count 42.7 thou/uL (4.8-10.8)
[2022-03-25 05:17] LABS: Band 38 % (5-11); MDiff Complete? YES; Macrocytosis MODERATE=16-30 cells (100X) (0-5/hpf); Metamyelocyte 1 % (0-0); Monocytes 3 % (0-10); Myelocyte 1 % (0-0); Neutrophil 56 % (42-75); Nucleated RBC 2 % (0)
[2022-03-25 05:51] LABS: CKMB 0.7 ng/mL (0-6.6)
[2022-03-25] MEDS ORDERED: Cefepime 2 GM VIAL ONE (05:51)
[2022-03-25] MEDS ORDERED: Vancomycin 1 GM in Premix Bag 1 BAG IVPB SCH (06:30)
[2022-03-25] MEDS ORDERED: Sodium Chloride 0.9% 1,000 ML IV SCH ×2 (06:30→09:00)
[2022-03-25] MEDS ORDERED: Vancomycin 1 GM/200 ML BAG ONE (07:18)
[2022-03-25 07:58] LABS: Troponin I 0.108 ng/mL (< 0.028)
[2022-03-25] MEDS ORDERED: Dextrose 5% in Water 1,000 ML IV PRN (08:57)
[2022-03-25] MEDS ORDERED: Dextrose 50% Abboject 50 ML SYRINGE SLOW IVP PRN (08:57)
[2022-03-25] MEDS ORDERED: Acetaminophen 325 MG TAB PO PRN (08:57)
[2022-03-25 09:05] LABS: Lactic Acid 2.6 mmol/L (0.5-2.2)
[2022-03-25] MEDS ORDERED: Metoclopramide HCl 10 MG/2 ML VIAL IVP PRN (09:08)
[2022-03-25 09:44] LABS: Magnesium 1.3 mg/dL (1.6-2.6)
[2022-03-25 10:15] LABS: Bacteria/HPF 3+ HPF (None Seen); Bilirubin Negative (Negative); Blood, Urine 1+ (Negative); Clarity Clear (Clear); Glucose, Urine (Dipstick) 300 mg/dL (Negative); Ketone, Urine Negative (Negative); Leukocyte Negative Leu/uL (Negative); Nitrite Negative (Negative); Protein, Urine (Dipstick) 30 mg/dL (Neg-Trace); Specific Gravity, Urine 1.015 (1.002-1.036); Squamous Epithelial 0-3 HPF (0-3); Urobilinogen Normal mg/dL (Less than 2); WBC/HPF 0-3 HPF (0-3)
[2022-03-25] MEDS ORDERED: Magnesium 2 GM/50 ML(in water) 2 GM in Premix Bag 1 BAG IVPB SCH (10:45)
[2022-03-25] MEDS ORDERED: Electrolyte Replacement Protocol 1 EACH FS SCH (10:45)
[2022-03-25 11:01] LABS: Troponin I 0.119 ng/mL (< 0.028)
[2022-03-25 11:40] VITALS: BMI 21.7
[2022-03-25] MEDS ORDERED: Sodium Chloride 0.9% 500 ML IV SCH ×2 (12:15→13:15)
[2022-03-25] MEDS ORDERED: Magnesium Sulfate In Water 4 GM in Premix Bag 1 BAG IVPB SCH (13:00)
[2022-03-25] MEDS: Sodium Chloride 0.9% 1,000 ML IV SCH ×2 (13:26→20:03)
[2022-03-25] MEDS: Finasteride 5 MG TAB PO SCH (13:52)
[2022-03-25] MEDS: Insulin Glargine 30 UNITS/0.3 ML VIAL SC SCH (13:52)
[2022-03-25] MEDS ORDERED: Norepinephrine 8 MG/0.9% NS 250 ML IVPB PRN (13:57)
[2022-03-25] MEDS ORDERED: Cefepime 2 GM in Sodium Chloride 0.9% 100 ML IVPB SCH (15:00)
[2022-03-25 15:25] LABS: INR-International Normal Ratio 1.7; PTT 38.6 sec (22.9-36.1); Prothrombin Time 20.5 sec (12.0-14.7)
[2022-03-25] MEDS ORDERED: Insulin Glargine 30 UNITS/0.3 ML VIAL SC SCH (17:15)
[2022-03-25] MEDS: Cefepime 2 GM in Sodium Chloride 0.9% 100 ML IVPB SCH (17:21)
[2022-03-25 17:48] LABS: Anion Gap 15 mmol/L (10-20); BUN (Urea Nitrogen) 50 mg/dL (8.4-25.7); Calc. Creatinine Clearance 35 mL/min (70-130); Calcium 7.9 mg/dL (7.8-10.44); Carbon Dioxide 22 mmol/L (23-31); Chloride 98 mmol/L (98-107); Glucose 412 mg/dL (83-110); Potassium 5.1 mmol/L (3.5-5.1); Sodium 130 mmol/L (136-145)
[2022-03-25] MEDS: Metoprolol Tartrate 25 MG TAB PO SCH (20:03)
[2022-03-25] MEDS: Atorvastatin Calcium 40 MG TAB PO SCH (20:03)
[2022-03-25] MEDS: HumaLOG 300 UNITS/3 ML VIAL SC PRN (21:06)
[2022-03-26] MEDS: Cefepime 2 GM in Sodium Chloride 0.9% 100 ML IVPB SCH (05:28)
[2022-03-26 05:39] LABS: Lactic Acid 1.3 mmol/L (0.5-2.2)
[2022-03-26 05:44] LABS: Anion Gap 10 mmol/L (10-20); BUN (Urea Nitrogen) 51 mg/dL (8.4-25.7); Calc. Creatinine Clearance 38 mL/min (70-130); Carbon Dioxide 26 mmol/L (23-31); Chloride 100 mmol/L (98-107); Glucose 209 mg/dL (83-110); Magnesium 2.2 mg/dL (1.6-2.6); Potassium 4.8 mmol/L (3.5-5.1); Sodium 131 mmol/L (136-145)
[2022-03-26] MEDS: HumaLOG 300 UNITS/3 ML VIAL SC PRN ×2 (06:17→21:21)
[2022-03-26 06:46] LABS: Hemoglobin 7.1 g/dL (14.0-18.0); Mean Corpuscular HGB CONC 30.5 g/dL (32.0-36.0); Mean Corpuscular Hemoglobin 37.5 pg (27.0-31.0); Mean Platelet Volume 9.8 fL (7.4-10.4); Platelet Count 226 thou/uL (130-400); RBC Distribution Width 14.8 % (11.5-14.5); Red Blood Cell (RBC) Count 1.89 mill/uL (4.70-6.10); White Blood Cell (WBC) Count 32.7 thou/uL (4.8-10.8)
[2022-03-26 07:38] LABS: Vancomycin, Random 7.4 ug/mL (See Comment)
[2022-03-26] MEDS ORDERED: VANCOMYCIN 1.25 GM/250 ML BAG 1.25 GM in Premix Bag 1 BAG IVPB SCH (08:00)
[2022-03-26] MEDS ORDERED: Vancomycin 1 GM in Premix Bag 1 BAG IVPB SCH (08:00)
[2022-03-26] MEDS: Aspirin 81 mg Enteric Coated Tablet PO SCH (08:06)
[2022-03-26] MEDS: Finasteride 5 MG TAB PO SCH (08:06)
[2022-03-26] MEDS: Folic Acid 1 MG TAB PO SCH (08:06)
[2022-03-26] MEDS: predniSONE 5 MG TAB PO SCH (08:06)
[2022-03-26] MEDS: Clopidogrel Bisulfate 75 MG TAB PO SCH (08:06)
[2022-03-26] MEDS: Insulin Glargine 30 UNITS/0.3 ML VIAL SC SCH (08:07)
[2022-03-26 08:17] LABS: Band 55 % (5-11); Hypochromia SLIGHT = 6-15 cells (100X) (0-5/hpf); Lymphocytes 5 % (21-51); MDiff Complete? YES; Macrocytosis MODERATE=16-30 cells (100X) (0-5/hpf); Monocytes 2 % (0-10); Neutrophil 38 % (42-75); Nucleated RBC 1 % (0); Platelet Morphology Comment Appears Adequate; Polychromasia SLIGHT = 2-3 cells (100X) (0-2/hpf)
[2022-03-26] MEDS: Metoprolol Tartrate 25 MG TAB PO SCH ×2 (11:32→20:40)
[2022-03-26] MEDS: Atorvastatin Calcium 40 MG TAB PO SCH (20:40)
[2022-03-27] MEDS: HumaLOG 300 UNITS/3 ML VIAL SC PRN ×4 (05:49→22:08)
[2022-03-27] MEDS ORDERED: VANCOMYCIN 1.25 GM/250 ML BAG 1.25 GM in Premix Bag 1 BAG IVPB SCH ×2 (08:00→09:00)
[2022-03-27 08:25] LABS: Hemoglobin 7.5 g/dL (14.0-18.0); Mean Corpuscular HGB CONC 30.4 g/dL (32.0-36.0); Mean Corpuscular Hemoglobin 37.6 pg (27.0-31.0); Mean Platelet Volume 10.5 fL (7.4-10.4); Platelet Count 182 thou/uL (130-400); RBC Distribution Width 14.4 % (11.5-14.5); Red Blood Cell (RBC) Count 1.98 mill/uL (4.70-6.10)
[2022-03-27 08:36] LABS: Vancomycin, Random 14.3 ug/mL (See Comment)
[2022-03-27] MEDS ORDERED: Insulin Glargine 30 UNITS/0.3 ML VIAL SC SCH (09:00)
[2022-03-27 09:03] LABS: Band 56 % (5-11); Lymphocytes 2 % (21-51); MDiff Complete? YES; Macrocytosis MODERATE=16-30 cells (100X) (0-5/hpf); Monocytes 4 % (0-10); Neutrophil 38 % (42-75); Nucleated RBC 1 % (0); Platelet Morphology Comment Appears Adequate; Polychromasia MODERATE = 3-4 cells (100X) (0-2/hpf)
[2022-03-27] MEDS ORDERED: VANCOMYCIN IVPB SCH (09:15)
[2022-03-27] MEDS: Aspirin 81 mg Enteric Coated Tablet PO SCH (09:41)
[2022-03-27] MEDS: predniSONE 5 MG TAB PO SCH (09:41)
[2022-03-27] MEDS: Metoprolol Tartrate 25 MG TAB PO SCH ×2 (09:41→22:08)
[2022-03-27] MEDS: Clopidogrel Bisulfate 75 MG TAB PO SCH (09:41)
[2022-03-27] MEDS: Finasteride 5 MG TAB PO SCH (09:41)
[2022-03-27] MEDS: Folic Acid 1 MG TAB PO SCH (09:41)
[2022-03-27] MEDS: Atorvastatin Calcium 40 MG TAB PO SCH (22:08)
[2022-03-28 05:17] LABS: Hemoglobin 6.9 g/dL (14.0-18.0); Mean Corpuscular HGB CONC 30.6 g/dL (32.0-36.0); Mean Corpuscular Hemoglobin 37.8 pg (27.0-31.0); Platelet Count 150 thou/uL (130-400); RBC Distribution Width 14.5 % (11.5-14.5); Red Blood Cell (RBC) Count 1.84 mill/uL (4.70-6.10)
[2022-03-28 05:33] LABS: Anion Gap 13 mmol/L (10-20); BUN (Urea Nitrogen) 62 mg/dL (8.4-25.7); Calc. Creatinine Clearance 23 mL/min (70-130); Calcium 8.8 mg/dL (7.8-10.44); Carbon Dioxide 23 mmol/L (23-31); Chloride 96 mmol/L (98-107); Glucose 476 mg/dL (83-110); Potassium 5.2 mmol/L (3.5-5.1); Sodium 127 mmol/L (136-145)
[2022-03-28] MEDS: HumaLOG 300 UNITS/3 ML VIAL SC PRN ×4 (05:46→20:47)
[2022-03-28 06:32] LABS: Band 26 % (5-11); Lymphocytes 2 % (21-51); MDiff Complete? YES; Metamyelocyte 2 % (0-0); Myelocyte 2 % (0-0); Neutrophil 68 % (42-75)
[2022-03-28] MEDS ORDERED: Sodium Chloride 0.9% 1,000 ML IV SCH (08:15)
[2022-03-28] MEDS ORDERED: Insulin Glargine 30 UNITS/0.3 ML VIAL SC SCH (09:00)
[2022-03-28] MEDS: Clopidogrel Bisulfate 75 MG TAB PO SCH (09:27)
[2022-03-28] MEDS: Finasteride 5 MG TAB PO SCH (09:27)
[2022-03-28] MEDS: Sodium Chloride 0.9% 1,000 ML IV SCH ×2 (09:27→23:59)
[2022-03-28] MEDS: Metoprolol Tartrate 25 MG TAB PO SCH ×2 (09:27→20:47)
[2022-03-28] MEDS: Aspirin 81 mg Enteric Coated Tablet PO SCH (09:27)
[2022-03-28] MEDS: Folic Acid 1 MG TAB PO SCH (09:27)
[2022-03-28] MEDS: predniSONE 5 MG TAB PO SCH (09:27)
[2022-03-28 10:11] LABS: Vancomycin, Random 18.4 ug/mL (See Comment)
[2022-03-28 10:25] LABS: Creatinine, Urine 106.64 mg/dL (63-166); Sodium, Urine Less than 20 mmol/L (Not Available)
[2022-03-28 10:27] LABS: Bilirubin Negative (Negative); Blood, Urine Large (Negative); Glucose, Urine (Dipstick) 100 mg/dL (Negative); Ketone, Urine Negative (Negative); Leukocyte Negative (Negative); Nitrite Negative (Negative); Protein, Urine (Dipstick) 30 mg/dL (Neg-Trace); Urobilinogen 0.2 mg/dL (Less than 2)
[2022-03-28 10:29] LABS: Clarity Clear (Clear); Specific Gravity, Urine 1.015 (1.002-1.036)
[2022-03-28 10:40] LABS: WBC/HPF 0-3 HPF (0-3)
[2022-03-28 10:42] LABS: Bacteria/HPF 1+ HPF (None Seen)
[2022-03-28] MEDS ORDERED: Vancomycin HCl 500 MG in Sodium Chloride 0.9% 100 ML IVPB SCH (10:45)
[2022-03-28] MEDS: Atorvastatin Calcium 40 MG TAB PO SCH (20:47)
[2022-03-29 04:49] LABS: Anion Gap 12 mmol/L (10-20); BUN (Urea Nitrogen) 71 mg/dL (8.4-25.7); Calc. Creatinine Clearance 24 mL/min (70-130); Calcium 9.2 mg/dL (7.8-10.44); Carbon Dioxide 24 mmol/L (23-31); Chloride 100 mmol/L (98-107); Glucose 239 mg/dL (83-110); Potassium 5.4 mmol/L (3.5-5.1); Sodium 131 mmol/L (136-145)
[2022-03-29] MEDS: HumaLOG 300 UNITS/3 ML VIAL SC PRN ×3 (05:15→21:28)
[2022-03-29 05:18] LABS: Band 21 % (5-11); Hemoglobin 8.3 g/dL (14.0-18.0); Lymphocytes 2 % (21-51); MDiff Complete? YES; Macrocytosis MODERATE=16-30 cells (100X) (0-5/hpf); Mean Corpuscular HGB CONC 30.4 g/dL (32.0-36.0); Mean Corpuscular Hemoglobin 35.7 pg (27.0-31.0); Mean Platelet Volume 11.1 fL (7.4-10.4); Monocytes 6 % (0-10); Myelocyte 6 % (0-0); Neutrophil 65 % (42-75); Nucleated RBC 3 % (0); Platelet Count 132 thou/uL (130-400); Red Blood Cell (RBC) Count 2.31 mill/uL (4.70-6.10); White Blood Cell (WBC) Count 12.7 thou/uL (4.8-10.8)
[2022-03-29] MEDS: Metoprolol Tartrate 25 MG TAB PO SCH ×2 (09:25→21:21)
[2022-03-29] MEDS: predniSONE 5 MG TAB PO SCH (09:25)
[2022-03-29] MEDS: Folic Acid 1 MG TAB PO SCH (09:25)
[2022-03-29] MEDS: Aspirin 81 mg Enteric Coated Tablet PO SCH (09:25)
[2022-03-29] MEDS: Insulin Glargine 30 UNITS/0.3 ML VIAL SC SCH (09:25)
[2022-03-29] MEDS: Finasteride 5 MG TAB PO SCH (09:25)
[2022-03-29] MEDS: Clopidogrel Bisulfate 75 MG TAB PO SCH (09:25)
[2022-03-29] MEDS: Sodium Chloride 0.9% 1,000 ML IV SCH ×2 (13:52→16:28)
[2022-03-29] MEDS: Atorvastatin Calcium 40 MG TAB PO SCH (21:21)
[2022-03-30 05:09] LABS: Anion Gap 9 mmol/L (10-20); BUN (Urea Nitrogen) 70 mg/dL (8.4-25.7); Calc. Creatinine Clearance 29 mL/min (70-130); Calcium 9.2 mg/dL (7.8-10.44); Carbon Dioxide 27 mmol/L (23-31); Chloride 103 mmol/L (98-107); Glucose 228 mg/dL (83-110); Potassium 5.2 mmol/L (3.5-5.1); Sodium 134 mmol/L (136-145)
[2022-03-30 05:32] LABS: Anisocytosis SLIGHT = 6-15 cells (100X) (0-5/hpf); Band 5 % (5-11); Hypochromia SLIGHT = 6-15 cells (100X) (0-5/hpf); Lymphocytes 6 % (21-51); MDiff Complete? YES; Macrocytosis MODERATE=16-30 cells (100X) (0-5/hpf); Mean Corpuscular HGB CONC 30.9 g/dL (32.0-36.0); Mean Corpuscular Hemoglobin 35.9 pg (27.0-31.0); Mean Platelet Volume 10.8 fL (7.4-10.4); Metamyelocyte 3 % (0-0); Monocytes 8 % (0-10); Neutrophil 78 % (42-75); Ovalocytes SLIGHT = 2-5 cells (100X) (0-1/hpf); Platelet Count 136 thou/uL (130-400); Platelet Morphology Comment Appears Adequate; Polychromasia SLIGHT = 2-3 cells (100X) (0-2/hpf); RBC Distribution Width 18.2 % (11.5-14.5); Red Blood Cell (RBC) Count 2.22 mill/uL (4.70-6.10); White Blood Cell (WBC) Count 11.5 thou/uL (4.8-10.8)
[2022-03-30] MEDS: HumaLOG 300 UNITS/3 ML VIAL SC PRN ×3 (06:14→17:15)
[2022-03-30] MEDS ORDERED: Dextrose 50% Abboject 50 ML SYRINGE SLOW IVP PRN (07:58)
[2022-03-30] MEDS ORDERED: Insulin Regular 300 UNITS/3 ML VIAL IVP SCH (08:00)
[2022-03-30] MEDS: Albuterol Sulfate 2.5 mg/3 ml Neb NEB SCH ×2 (10:30→10:34)
[2022-03-30] MEDS: Aspirin 81 mg Enteric Coated Tablet PO SCH (10:38)
[2022-03-30] MEDS: Clopidogrel Bisulfate 75 MG TAB PO SCH (10:38)
[2022-03-30] MEDS: Insulin Glargine 30 UNITS/0.3 ML VIAL SC SCH ×2 (10:38→21:01)
[2022-03-30] MEDS: Folic Acid 1 MG TAB PO SCH (10:39)
[2022-03-30] MEDS: Finasteride 5 MG TAB PO SCH (10:39)
[2022-03-30] MEDS: Metoprolol Tartrate 25 MG TAB PO SCH ×2 (10:39→21:01)
[2022-03-30] MEDS: predniSONE 5 MG TAB PO SCH (10:39)
[2022-03-30] MEDS ORDERED: predniSONE 5 MG TAB PO SCH (13:15)
[2022-03-30] MEDS: Atorvastatin Calcium 40 MG TAB PO SCH (21:01)
[2022-03-30 23:43] LABS: Anion Gap 10 mmol/L (10-20); BUN (Urea Nitrogen) 66 mg/dL (8.4-25.7); Calc. Creatinine Clearance 33 mL/min (70-130); Calcium 9.3 mg/dL (7.8-10.44); Carbon Dioxide 27 mmol/L (23-31); Chloride 104 mmol/L (98-107); Glucose 254 mg/dL (83-110); Potassium 5.1 mmol/L (3.5-5.1); Sodium 136 mmol/L (136-145)
[2022-03-31 04:30] LABS: Hemoglobin 7.7 g/dL (14.0-18.0); Mean Corpuscular HGB CONC 31.1 g/dL (32.0-36.0); Mean Corpuscular Hemoglobin 36.1 pg (27.0-31.0); Mean Platelet Volume 10.6 fL (7.4-10.4); Platelet Count 138 thou/uL (130-400); RBC Distribution Width 17.3 % (11.5-14.5); Red Blood Cell (RBC) Count 2.12 mill/uL (4.70-6.10); White Blood Cell (WBC) Count 6.8 thou/uL (4.8-10.8)
[2022-03-31 04:53] LABS: Anion Gap 8 mmol/L (10-20); BUN (Urea Nitrogen) 64 mg/dL (8.4-25.7); Calc. Creatinine Clearance 36 mL/min (70-130); Calcium 9.2 mg/dL (7.8-10.44); Carbon Dioxide 29 mmol/L (23-31); Chloride 106 mmol/L (98-107); Glucose 170 mg/dL (83-110); Potassium 4.9 mmol/L (3.5-5.1); Sodium 138 mmol/L (136-145)
[2022-03-31] MEDS: Metoprolol Tartrate 25 MG TAB PO SCH ×2 (09:09→21:53)
[2022-03-31] MEDS: Finasteride 5 MG TAB PO SCH (09:09)
[2022-03-31] MEDS: predniSONE 5 MG TAB PO SCH (09:09)
[2022-03-31] MEDS: Clopidogrel Bisulfate 75 MG TAB PO SCH (09:09)
[2022-03-31] MEDS: Aspirin 81 mg Enteric Coated Tablet PO SCH (09:09)
[2022-03-31] MEDS: Folic Acid 1 MG TAB PO SCH (09:09)
[2022-03-31] MEDS: Insulin Glargine 30 UNITS/0.3 ML VIAL SC SCH ×2 (09:10→21:52)
[2022-03-31 15:48] LABS: SARS-CoV-2 PCR by NAA Not Detected (NotDetected)
[2022-03-31] MEDS: Atorvastatin Calcium 40 MG TAB PO SCH (21:52)
[2022-04-01 06:20] LABS: Anion Gap 12 mmol/L (10-20); Anisocytosis SLIGHT = 6-15 cells (100X) (0-5/hpf); BUN (Urea Nitrogen) 50 mg/dL (8.4-25.7); Band 9 % (5-11); Calc. Creatinine Clearance 46 mL/min (70-130); Calcium 9.8 mg/dL (7.8-10.44); Carbon Dioxide 29 mmol/L (23-31); Chloride 106 mmol/L (98-107); Glucose 69 mg/dL (83-110); Hemoglobin 8.8 g/dL (14.0-18.0); Hypochromia MODERATE=16-30 cells (100X) (0-5/hpf); Lymphocytes 9 % (21-51); MDiff Complete? YES; Macrocytosis MODERATE=16-30 cells (100X) (0-5/hpf); Mean Corpuscular Hemoglobin 35.7 pg (27.0-31.0); Mean Platelet Volume 9.8 fL (7.4-10.4); Monocytes 17 % (0-10); Myelocyte 1 % (0-0); Neutrophil 64 % (42-75); Platelet Count 185 thou/uL (130-400); Platelet Morphology Comment Appears Adequate; Polychromasia SLIGHT = 2-3 cells (100X) (0-2/hpf); Potassium 4.9 mmol/L (3.5-5.1); RBC Distribution Width 17.2 % (11.5-14.5); Red Blood Cell (RBC) Count 2.48 mill/uL (4.70-6.10); Sodium 142 mmol/L (136-145); White Blood Cell (WBC) Count 9.7 thou/uL (4.8-10.8)
[2022-04-01] MEDS ORDERED: Labetalol HCl 100 MG/20 ML VIAL SLOW IVP SCH (08:00)
[2022-04-01] MEDS: Folic Acid 1 MG TAB PO SCH (08:29)
[2022-04-01] MEDS: Aspirin 81 mg Enteric Coated Tablet PO SCH (08:29)
[2022-04-01] MEDS: Metoprolol Tartrate 25 MG TAB PO SCH ×2 (08:29→21:22)
[2022-04-01] MEDS: Finasteride 5 MG TAB PO SCH (08:29)
[2022-04-01] MEDS: predniSONE 5 MG TAB PO SCH (08:29)
[2022-04-01] MEDS: Clopidogrel Bisulfate 75 MG TAB PO SCH (08:29)
[2022-04-01] MEDS ORDERED: Insulin Glargine 30 UNITS/0.3 ML VIAL SC SCH (09:00)
[2022-04-01] MEDS: HumaLOG 300 UNITS/3 ML VIAL SC PRN (11:55)
[2022-04-01] MEDS: Atorvastatin Calcium 40 MG TAB PO SCH (21:21)
[2022-04-02] MEDS ORDERED: Dextrose 50% Abboject 50 ML SYRINGE SLOW IVP PRN (01:40)
[2022-04-02 06:34] LABS: Anion Gap 9 mmol/L (10-20); BUN (Urea Nitrogen) 45 mg/dL (8.4-25.7); Calc. Creatinine Clearance 50 mL/min (70-130); Calcium 9.2 mg/dL (7.8-10.44); Carbon Dioxide 34 mmol/L (23-31); Chloride 101 mmol/L (98-107); Glucose 203 mg/dL (83-110); Sodium 139 mmol/L (136-145)
[2022-04-02] MEDS: Albumin 25% 25 GM/100 ML BOT IVPB SCH ×2 (10:24→17:12)
[2022-04-02] MEDS: Metoprolol Tartrate 25 MG TAB PO SCH ×2 (10:25→21:27)
[2022-04-02] MEDS: Clopidogrel Bisulfate 75 MG TAB PO SCH (10:25)
[2022-04-02] MEDS: Finasteride 5 MG TAB PO SCH (10:25)
[2022-04-02] MEDS: Aspirin 81 mg Enteric Coated Tablet PO SCH (10:25)
[2022-04-02] MEDS: Folic Acid 1 MG TAB PO SCH (10:26)
[2022-04-02] MEDS: predniSONE 5 MG TAB PO SCH (10:28)
[2022-04-02] MEDS ORDERED: Metoprolol Tartrate 25 MG TAB PO SCH (10:45)
[2022-04-02] MEDS: HumaLOG 300 UNITS/3 ML VIAL SC PRN (19:46)
[2022-04-02] MEDS: Atorvastatin Calcium 40 MG TAB PO SCH (21:27)
[2022-04-03 08:08] LABS: Albumin 2.9 g/dL (3.4-4.8); Anion Gap 10 mmol/L (10-20); BUN (Urea Nitrogen) 39 mg/dL (8.4-25.7); BUN/Creatinine Ratio 25.49; Calc. Creatinine Clearance 45 mL/min (70-130); Calcium 8.8 mg/dL (7.8-10.44); Carbon Dioxide 34 mmol/L (23-31); Chloride 103 mmol/L (98-107); Glucose 216 mg/dL (83-110); Phosphorus 4.2 mg/dL (2.3-4.7); Potassium 5.1 mmol/L (3.5-5.1); Sodium 142 mmol/L (136-145)
[2022-04-03 08:14] LABS: Hemoglobin 7.6 g/dL (14.0-18.0); Mean Corpuscular HGB CONC 29.8 g/dL (32.0-36.0); Mean Corpuscular Hemoglobin 35.3 pg (27.0-31.0); Mean Platelet Volume 9.3 fL (7.4-10.4); Platelet Count 212 thou/uL (130-400); RBC Distribution Width 16.7 % (11.5-14.5); Red Blood Cell (RBC) Count 2.15 mill/uL (4.70-6.10); White Blood Cell (WBC) Count 6.3 thou/uL (4.8-10.8)
[2022-04-03] MEDS: predniSONE 5 MG TAB PO SCH (08:52)
[2022-04-03] MEDS: Folic Acid 1 MG TAB PO SCH (08:53)
[2022-04-03] MEDS: Finasteride 5 MG TAB PO SCH (08:53)
[2022-04-03] MEDS: Clopidogrel Bisulfate 75 MG TAB PO SCH (08:53)
[2022-04-03] MEDS: Metoprolol Tartrate 25 MG TAB PO SCH ×3 (08:53→20:26)
[2022-04-03] MEDS: Aspirin 81 mg Enteric Coated Tablet PO SCH (08:53)
[2022-04-03] MEDS: Albumin 25% 25 GM/100 ML BOT IVPB SCH ×2 (09:51→17:51)
[2022-04-03 11:05] LABS: Creatinine, Urine 40.21 mg/dL (63-166)
[2022-04-03 11:23] LABS: Bacteria/HPF None Seen HPF (None Seen); Bilirubin Negative (Negative); Blood, Urine 1+ (Negative); Clarity Turbid (Clear); Glucose, Urine (Dipstick) 300 mg/dL (Negative); Ketone, Urine Negative (Negative); Leukocyte Negative Leu/uL (Negative); Nitrite Negative (Negative); Protein, Urine (Dipstick) 10 mg/dL (Neg-Trace); Specific Gravity, Urine 1.013 (1.002-1.036); Squamous Epithelial None Seen HPF (0-3); Urobilinogen Normal mg/dL (Less than 2); WBC/HPF 0-3 HPF (0-3)
[2022-04-03 11:28] LABS: Urine Culture Reflex No No
[2022-04-03] MEDS: HumaLOG 300 UNITS/3 ML VIAL SC PRN ×3 (12:09→21:41)
[2022-04-03] MEDS: Atorvastatin Calcium 40 MG TAB PO SCH (20:24)
[2022-04-04 06:01] LABS: Albumin 3.2 g/dL (3.4-4.8); Anion Gap 9 mmol/L (10-20); BUN (Urea Nitrogen) 38 mg/dL (8.4-25.7); BUN/Creatinine Ratio 27.34; Calc. Creatinine Clearance 49 mL/min (70-130); Calcium 9.3 mg/dL (7.8-10.44); Carbon Dioxide 34 mmol/L (23-31); Chloride 102 mmol/L (98-107); Glucose 164 mg/dL (83-110); Phosphorus 4.3 mg/dL (2.3-4.7); Sodium 140 mmol/L (136-145)
[2022-04-04 06:03] LABS: Iron 30 ug/dL (65-175); Iron Binding Capacity, Total 161 mcg/dL (261-462)
[2022-04-04] MEDS ORDERED: Iron, Sodium Ferric Gluconate 250 MG in Sodium Chloride 0.9% 250 ML 250 ML IVPB SCH (09:00)
[2022-04-04] MEDS: Clopidogrel Bisulfate 75 MG TAB PO SCH (09:08)
[2022-04-04] MEDS: Folic Acid 1 MG TAB PO SCH (09:08)
[2022-04-04] MEDS: Metoprolol Tartrate 25 MG TAB PO SCH (09:08)
[2022-04-04] MEDS: Aspirin 81 mg Enteric Coated Tablet PO SCH (09:08)
[2022-04-04] MEDS: predniSONE 5 MG TAB PO SCH (09:09)
[2022-04-04] MEDS: Finasteride 5 MG TAB PO SCH (09:09)
[2022-04-04] MEDS: HumaLOG 300 UNITS/3 ML VIAL SC PRN ×2 (11:34→16:28)
[2022-04-04 15:43] VITALS: BP 127/60; TEMP 98.5
== END 2022-04-04 16:52 | DRG 871 ==
LOC: ERS 04:06 → ERHOLD 06:06 → IMCU/EMU 10:11 → CCU 16:32 → 2NO 03-26 08:35 → SURG A 03-31 14:30
PROVIDERS: ADMIT Student in an Organized Health Care Education/Training Program; ATTEND Internal Medicine
PROC: 02HV33Z Insertion of Infusion Device into Superior Vena Cava, Percutaneous Approach (ICD-10-PCS; principal; 2022-03-25)
PROC: B548ZZA Ultrasonography of Superior Vena Cava, Guidance (ICD-10-PCS; 2022-03-25)
PROC: 3E04329 Introduction of Other Anti-infective into Central Vein, Percutaneous Approach (ICD-10-PCS; 2022-03-25)
PROC: 30233N1 Transfusion of Nonautologous Red Blood Cells into Peripheral Vein, Percutaneous Approach (ICD-10-PCS; 2022-03-28)
DX: A41.9 Sepsis, unspecified organism (principal); J96.01 Acute respiratory failure with hypoxia; R65.21 Severe sepsis with septic shock; J15.9 Unspecified bacterial pneumonia; J44.0 Chronic obstructive pulmonary disease with (acute) lower respiratory infection; J44.1 Chronic obstructive pulmonary disease with (acute) exacerbation; N39.0 Urinary tract infection, site not specified; N17.9 Acute kidney failure, unspecified; I50.32 Chronic diastolic (congestive) heart failure; I47.2 Ventricular tachycardia; I13.0 Hypertensive heart and chronic kidney disease with heart failure and stage 1 through stage 4 chronic kidney disease, or unspecified chronic kidney disease; E87.1 Hypo-osmolality and hyponatremia; J98.11 Atelectasis; F17.210 Nicotine dependence, cigarettes, uncomplicated; E78.5 Hyperlipidemia, unspecified; I25.10 Atherosclerotic heart disease of native coronary artery without angina pectoris; B96.20 Unspecified Escherichia coli [E. coli] as the cause of diseases classified elsewhere; E86.0 Dehydration; T38.0X5A Adverse effect of glucocorticoids and synthetic analogues, initial encounter; R31.0 Gross hematuria; N40.1 Benign prostatic hyperplasia with lower urinary tract symptoms; R33.8 Other retention of urine; K21.9 Gastro-esophageal reflux disease without esophagitis; E11.649 Type 2 diabetes mellitus with hypoglycemia without coma; D63.1 Anemia in chronic kidney disease; R94.31 Abnormal electrocardiogram [ECG] [EKG]; D52.9 Folate deficiency anemia, unspecified; E11.22 Type 2 diabetes mellitus with diabetic chronic kidney disease; E11.65 Type 2 diabetes mellitus with hyperglycemia; R53.81 Other malaise; E87.5 Hyperkalemia; N18.30 Chronic kidney disease, stage 3 unspecified; E88.09 Other disorders of plasma-protein metabolism, not elsewhere classified; E83.42 Hypomagnesemia; Z20.822 Contact with and (suspected) exposure to COVID-19; Z79.4 Long term (current) use of insulin; Z79.899 Other long term (current) drug therapy; Z79.82 Long term (current) use of aspirin; Z79.01 Long term (current) use of anticoagulants; Z95.810 Presence of automatic (implantable) cardiac defibrillator; Z72.89 Other problems related to lifestyle; Z98.42 Cataract extraction status, left eye; Z98.41 Cataract extraction status, right eye; Z95.5 Presence of coronary angioplasty implant and graft; Z98.890 Other specified postprocedural states
CPT/HCPCS: 36415; 36416; 36430; 70450; 71045; 71250; 74177; 76770; 80048; 80053; 80069; 80202; 81001; 81003; 81015; 82040; 82553; 82570; 82728; 83540; 83550; 83605; 83690; 83735; 84156; 84300; 84484; 85025; 85027; 85610; 85730; 86850; 86900; 86901; 87040; 87086; 93005; 93010; 94640; 96374; J0692; J1815; J1956; J2916; J3370; J3475; J3490; J7030; J7050; J7512; J7611; J7620; J7999; P9016; P9047; U0003; U0005

== ENCOUNTER 2022-04-06 08:39 | Inpatient (IN) | payer MEDICARE, BC ==
[2022-04-06 09:07] LABS: Actual Bicarbonate (HCO3a) 35.6 mEq/L (22-28); Analyzer IN Cardio ER; Base Excess (BEa) 5.7 mEq/L (-2.0 to +3.0); Calcium, Ionized (arterial) 1.25 mmol/L (1.12-1.30); Carboxyhemoglobin (COHb) 1.4 gm% (0.0-3.0); Hemoglobin (Hb) 8.5 g/dL (14.0-18.0); O2 Tension (PaO2), arterial 93.8 mmHg (> 70.0); Potassium - ABG Lab 5.49 mmol/L (3.70-5.30)
[2022-04-06 09:09] LABS: pH, Arterial 7.18 (7.35-7.45)
[2022-04-06 09:10] LABS: CO2 Tension 97.8 mmHg (35.0-45.0); Puncture Site LRA
[2022-04-06 09:14] LABS: Bacteria/HPF 2+ HPF (None Seen); Bilirubin Negative (Negative); Blood, Urine 2+ (Negative); Clarity Clear (Clear); Glucose, Urine (Dipstick) Normal (Negative); Ketone, Urine Negative (Negative); Leukocyte Negative Leu/uL (Negative); Nitrite Negative (Negative); Protein, Urine (Dipstick) 30 mg/dL (Neg-Trace); Specific Gravity, Urine 1.016 (1.002-1.036); Squamous Epithelial 0-3 HPF (0-3); Urobilinogen Normal mg/dL (Less than 2); WBC/HPF 0-3 HPF (0-3)
[2022-04-06 09:32] LABS: Mean Corpuscular HGB CONC 31.1 g/dL (32.0-36.0); Mean Corpuscular Hemoglobin 36.4 pg (27.0-31.0); Mean Platelet Volume 9.3 fL (7.4-10.4); Platelet Count 202 thou/uL (130-400); RBC Distribution Width 15.7 % (11.5-14.5); Red Blood Cell (RBC) Count 2.21 mill/uL (4.70-6.10); White Blood Cell (WBC) Count 7.3 thou/uL (4.8-10.8)
[2022-04-06 09:46] LABS: Band 12 % (5-11); Basophilic Stippling SLIGHT = 1-2 cells (100X) (None Seen); Lymphocytes 2 % (21-51); MDiff Complete? YES; Metamyelocyte 1 % (0-0); Monocytes 8 % (0-10); Myelocyte 2 % (0-0); Neutrophil 75 % (42-75); Platelet Morphology Comment Appears Adequate
[2022-04-06 09:59] LABS: ALT (SGPT) 21 U/L (8-55); AST (SGOT) 26 U/L (5-34); Albumin 3.1 g/dL (3.4-4.8); Alkaline Phosphatase 70 U/L (40-110); Anion Gap 11 mmol/L (10-20); BUN (Urea Nitrogen) 47 mg/dL (8.4-25.7); Bilirubin, Total 0.7 mg/dL (0.2-1.2); Calc. Creatinine Clearance 0 mL/min (70-130); Calcium 9.4 mg/dL (7.8-10.44); Carbon Dioxide 36 mmol/L (23-31); Chloride 98 mmol/L (98-107); Globulin 3.2 g/dL (2.4-3.5); Glucose 162 mg/dL (83-110); Magnesium 1.7 mg/dL (1.6-2.6); Potassium 5.8 mmol/L (3.5-5.1); Protein, Total 6.3 g/dL (5.8-8.1); Sodium 139 mmol/L (136-145)
[2022-04-06] MEDS ORDERED: Cefepime 2 GM VIAL ONE (10:05)
[2022-04-06 10:07] LABS: CKMB 2.4 ng/mL (0-6.6)
[2022-04-06] MEDS ORDERED: Furosemide 40 MG/4 ML VIAL ONE (11:16)
[2022-04-06] MEDS ORDERED: Electrolyte Replacement Protocol 1 EACH FS SCH (12:00)
[2022-04-06] MEDS ORDERED: Magnesium 2 GM/50 ML(in water) 2 GM in Premix Bag 1 BAG IVPB SCH (12:00)
[2022-04-06] MEDS ORDERED: Dextrose 5% in Water 1,000 ML IV PRN (12:17)
[2022-04-06] MEDS ORDERED: Dextrose 50% Abboject 50 ML SYRINGE SLOW IVP PRN (12:17)
[2022-04-06] MEDS ORDERED: Ondansetron PF 4 MG/2 ML Vial IVP PRN (12:18)
[2022-04-06] MEDS ORDERED: Acetaminophen 325 MG TAB PO PRN (12:18)
[2022-04-06] MEDS ORDERED: Ondansetron ODT 4 MG TAB PO PRN (12:18)
[2022-04-06] MEDS ORDERED: Calcium Carbonate 500 MG ChewTAB PO PRN (12:18)
[2022-04-06] MEDS: Vancomycin 1 GM in Premix Bag 1 BAG IVPB SCH (15:58)
[2022-04-06] MEDS: methylPREDNISolone Sod Succ 40 MG VIAL IVP SCH ×2 (15:58→21:50)
[2022-04-06 16:30] LABS: Anion Gap 12 mmol/L (10-20); BUN (Urea Nitrogen) 48 mg/dL (8.4-25.7); Calc. Creatinine Clearance 43 mL/min (70-130); Calcium 9.6 mg/dL (7.8-10.44); Carbon Dioxide 35 mmol/L (23-31); Chloride 98 mmol/L (98-107); Glucose 137 mg/dL (83-110); Potassium 5.4 mmol/L (3.5-5.1); Sodium 140 mmol/L (136-145)
[2022-04-06] MEDS: Empagliflozin 10 MG TAB PO SCH (18:10)
[2022-04-06] MEDS: Furosemide 40 MG/4 ML VIAL SLOW IVP SCH (21:44)
[2022-04-06] MEDS: Folic Acid 1 MG TAB PO SCH (21:48)
[2022-04-06] MEDS: Cefepime 2 GM in Sodium Chloride 0.9% 100 ML IVPB SCH (21:49)
[2022-04-06] MEDS: Senokot S 8.6-50 MG TAB PO SCH (21:51)
[2022-04-06] MEDS: Cyanocobalamin (Vitamin B-12) 1,000 MCG TAB PO SCH (21:51)
[2022-04-06] MEDS: Heparin 5,000 UNITS/ML VIAL SC SCH (21:52)
[2022-04-07 03:54] LABS: ALT (SGPT) 14 U/L (8-55); AST (SGOT) 19 U/L (5-34); Albumin 2.7 g/dL (3.4-4.8); Alkaline Phosphatase 56 U/L (40-110); Anion Gap 17 mmol/L (10-20); BUN (Urea Nitrogen) 52 mg/dL (8.4-25.7); Bilirubin, Total 0.5 mg/dL (0.2-1.2); Calc. Creatinine Clearance 43 mL/min (70-130); Carbon Dioxide 30 mmol/L (23-31); Chloride 94 mmol/L (98-107); Globulin 2.7 g/dL (2.4-3.5); Glucose 179 mg/dL (83-110); Magnesium 2.1 mg/dL (1.6-2.6); Potassium 5.7 mmol/L (3.5-5.1); Protein, Total 5.4 g/dL (5.8-8.1); Sodium 135 mmol/L (136-145)
[2022-04-07 04:19] LABS: Hemoglobin 6.7 g/dL (14.0-18.0); Mean Corpuscular HGB CONC 30.9 g/dL (32.0-36.0); Mean Platelet Volume 9.8 fL (7.4-10.4); Platelet Count 154 thou/uL (130-400); RBC Distribution Width 15.6 % (11.5-14.5); Red Blood Cell (RBC) Count 1.86 mill/uL (4.70-6.10); White Blood Cell (WBC) Count 1.7 thou/uL (4.8-10.8)
[2022-04-07 04:57] LABS: Band 12 % (5-11); Lymphocytes 16 % (21-51); MDiff Complete? YES; Macrocytosis MODERATE=16-30 cells (100X) (0-5/hpf); Metamyelocyte 1 % (0-0); Monocytes 11 % (0-10); Neutrophil 60 % (42-75)
[2022-04-07 05:33] LABS: Hemoglobin 6.7 g/dL (14.0-18.0); Mean Corpuscular HGB CONC 31.6 g/dL (32.0-36.0); Mean Corpuscular Hemoglobin 36.7 pg (27.0-31.0); Mean Platelet Volume 9.5 fL (7.4-10.4); Platelet Count 149 thou/uL (130-400); RBC Distribution Width 15.4 % (11.5-14.5); Red Blood Cell (RBC) Count 1.81 mill/uL (4.70-6.10)
[2022-04-07 05:55] LABS: Band 9 % (5-11); Lymphocytes 11 % (21-51); MDiff Complete? YES; Macrocytosis MODERATE=16-30 cells (100X) (0-5/hpf); Metamyelocyte 3 % (0-0); Monocytes 16 % (0-10); Myelocyte 2 % (0-0); Neutrophil 58 % (42-75)
[2022-04-07] MEDS: methylPREDNISolone Sod Succ 40 MG VIAL IVP SCH ×3 (06:40→22:28)
[2022-04-07] MEDS: Insulin Regular 300 UNITS/3 ML VIAL SC PRN ×4 (06:54→21:19)
[2022-04-07] MEDS: Clopidogrel Bisulfate 75 MG TAB PO SCH ×2 (09:12→09:40)
[2022-04-07] MEDS: Aspirin 81 mg Enteric Coated Tablet PO SCH (09:12)
[2022-04-07] MEDS: Folic Acid 1 MG TAB PO SCH ×2 (09:12→21:23)
[2022-04-07] MEDS: Cefepime 2 GM in Sodium Chloride 0.9% 100 ML IVPB SCH ×2 (09:13→22:28)
[2022-04-07] MEDS: Heparin 5,000 UNITS/ML VIAL SC SCH ×2 (09:13→21:21)
[2022-04-07] MEDS: Furosemide 40 MG/4 ML VIAL SLOW IVP SCH ×2 (09:13→21:23)
[2022-04-07] MEDS: Senokot S 8.6-50 MG TAB PO SCH ×2 (09:14→21:23)
[2022-04-07] MEDS: Polyethylene Glycol 3350 17 GM Packet PO SCH (09:14)
[2022-04-07 10:28] VITALS: BMI 24.4
[2022-04-07] MEDS ORDERED: Furosemide 40 MG/4 ML VIAL IVP SCH (11:15)
[2022-04-07 11:37] LABS: Reticulocyte Count 3.1 % (0.5-1.5)
[2022-04-07 11:58] LABS: Iron 151 ug/dL (65-175); Iron Binding Capacity, Total 171 mcg/dL (261-462)
[2022-04-07] MEDS: Vancomycin 1 GM in Premix Bag 1 BAG IVPB SCH (15:24)
[2022-04-07] MEDS: Empagliflozin 10 MG TAB PO SCH (17:51)
[2022-04-07] MEDS: Cyanocobalamin (Vitamin B-12) 1,000 MCG TAB PO SCH (21:37)
[2022-04-08] MEDS: methylPREDNISolone Sod Succ 40 MG VIAL IVP SCH ×2 (05:12→20:28)
[2022-04-08] MEDS: Insulin Regular 300 UNITS/3 ML VIAL SC PRN ×3 (06:05→20:30)
[2022-04-08 07:06] LABS: Anion Gap 15 mmol/L (10-20); BUN (Urea Nitrogen) 60 mg/dL (8.4-25.7); Calc. Creatinine Clearance 38 mL/min (70-130); Calcium 9.3 mg/dL (7.8-10.44); Carbon Dioxide 37 mmol/L (23-31); Chloride 92 mmol/L (98-107); Glucose 311 mg/dL (83-110); Magnesium 1.9 mg/dL (1.6-2.6); Potassium 4.7 mmol/L (3.5-5.1); Sodium 139 mmol/L (136-145)
[2022-04-08 07:55] LABS: Band 20 % (5-11); Hemoglobin 7.6 g/dL (14.0-18.0); Hypochromia SLIGHT = 6-15 cells (100X) (0-5/hpf); Lymphocytes 5 % (21-51); MDiff Complete? YES; Macrocytosis MODERATE=16-30 cells (100X) (0-5/hpf); Mean Corpuscular HGB CONC 31.7 g/dL (32.0-36.0); Mean Corpuscular Hemoglobin 35.7 pg (27.0-31.0); Mean Platelet Volume 9.6 fL (7.4-10.4); Monocytes 19 % (0-10); Neutrophil 56 % (42-75); Platelet Count 161 thou/uL (130-400); Platelet Morphology Comment Appears Adequate; Polychromasia SLIGHT = 2-3 cells (100X) (0-2/hpf); RBC Distribution Width 16.4 % (11.5-14.5); Red Blood Cell (RBC) Count 2.13 mill/uL (4.70-6.10); White Blood Cell (WBC) Count 1.6 thou/uL (4.8-10.8)
[2022-04-08] MEDS ORDERED: Magnesium 2 GM/50 ML(in water) 2 GM in Premix Bag 1 BAG IVPB SCH (09:00)
[2022-04-08] MEDS: Aspirin 81 mg Enteric Coated Tablet PO SCH (09:07)
[2022-04-08] MEDS: Furosemide 40 MG/4 ML VIAL SLOW IVP SCH ×2 (09:07→14:48)
[2022-04-08] MEDS: Cefepime 2 GM in Sodium Chloride 0.9% 100 ML IVPB SCH ×2 (09:07→22:03)
[2022-04-08] MEDS: Senokot S 8.6-50 MG TAB PO SCH ×2 (09:07→20:29)
[2022-04-08] MEDS: Folic Acid 1 MG TAB PO SCH ×2 (09:08→20:28)
[2022-04-08] MEDS: Polyethylene Glycol 3350 17 GM Packet PO SCH (09:09)
[2022-04-08] MEDS: Heparin 5,000 UNITS/ML VIAL SC SCH ×2 (09:10→20:28)
[2022-04-08] MEDS ORDERED: Insulin Glargine 30 UNITS/0.3 ML VIAL SC SCH (10:15)
[2022-04-08] MEDS ORDERED: HumaLOG 300 UNITS/3 ML VIAL SC SCH (12:26)
[2022-04-08 14:47] LABS: Vancomycin, Trough 15.5 ug/mL
[2022-04-08] MEDS: Vancomycin 1 GM in Premix Bag 1 BAG IVPB SCH (14:58)
[2022-04-08] MEDS: Empagliflozin 10 MG TAB PO SCH (19:20)
[2022-04-08] MEDS: Insulin Glargine 30 UNITS/0.3 ML VIAL SC SCH (20:28)
[2022-04-08] MEDS: Cyanocobalamin (Vitamin B-12) 1,000 MCG TAB PO SCH (20:29)
[2022-04-08] MEDS: Atorvastatin Calcium 40 MG TAB PO SCH (20:29)
[2022-04-08] MEDS: Metoprolol Tartrate 25 MG TAB PO SCH (20:29)
[2022-04-09 04:21] LABS: #Lymphocytes 0.4 thou/uL (1.20-3.40); #Monocytes 0.4 thou/uL (0.11-0.59); #Neutrophils 3.8 thou/uL (1.40-6.50); %Basophils 0.3 % (0.0-1.0); %Eosinophils 0.7 % (0.0-10.0); %Monocytes 8.6 % (0.0-10.0); %Neutrophils 82.6 % (42.0-75.0); Hemoglobin 7.1 g/dL (14.0-18.0); Mean Corpuscular HGB CONC 32.6 g/dL (32.0-36.0); Mean Platelet Volume 9.5 fL (7.4-10.4); Platelet Count 158 thou/uL (130-400); RBC Distribution Width 16.2 % (11.5-14.5); Red Blood Cell (RBC) Count 1.98 mill/uL (4.70-6.10); White Blood Cell (WBC) Count 4.6 thou/uL (4.8-10.8)
[2022-04-09 04:23] LABS: BUN (Urea Nitrogen) 60 mg/dL (8.4-25.7); Calc. Creatinine Clearance 39 mL/min (70-130); Calcium 9.3 mg/dL (7.8-10.44); Glucose 170 mg/dL (83-110)
[2022-04-09 04:33] LABS: Anion Gap 14 mmol/L (10-20); Carbon Dioxide 36 mmol/L (23-31); Chloride 94 mmol/L (98-107); Potassium 4.6 mmol/L (3.5-5.1); Sodium 139 mmol/L (136-145)
[2022-04-09] MEDS: Furosemide 40 MG/4 ML VIAL SLOW IVP SCH ×2 (05:06→15:20)
[2022-04-09] MEDS: Polyethylene Glycol 3350 17 GM Packet PO SCH (08:14)
[2022-04-09] MEDS: Insulin Glargine 30 UNITS/0.3 ML VIAL SC SCH ×2 (08:15→20:26)
[2022-04-09] MEDS: methylPREDNISolone Sod Succ 40 MG VIAL IVP SCH ×2 (08:17→20:26)
[2022-04-09] MEDS: Aspirin 81 mg Enteric Coated Tablet PO SCH (08:18)
[2022-04-09] MEDS: Senokot S 8.6-50 MG TAB PO SCH ×2 (08:18→20:27)
[2022-04-09] MEDS: Magnesium Oxide 400 MG TAB PO SCH (08:18)
[2022-04-09] MEDS: Folic Acid 1 MG TAB PO SCH ×2 (08:18→20:27)
[2022-04-09] MEDS: Metoprolol Tartrate 25 MG TAB PO SCH ×2 (08:18→20:26)
[2022-04-09] MEDS: Finasteride 5 MG TAB PO SCH (08:19)
[2022-04-09] MEDS: Ferrous Sulfate 325 MG TAB PO SCH (08:19)
[2022-04-09] MEDS: Heparin 5,000 UNITS/ML VIAL SC SCH ×2 (08:19→20:26)
[2022-04-09] MEDS ORDERED: Folic Acid 1 MG TAB PO SCH (09:00)
[2022-04-09] MEDS ORDERED: Insulin Glargine 30 UNITS/0.3 ML VIAL SC SCH (09:00)
[2022-04-09] MEDS: Insulin Regular 300 UNITS/3 ML VIAL SC PRN ×2 (11:13→16:57)
[2022-04-09] MEDS: Empagliflozin 10 MG TAB PO SCH (19:25)
[2022-04-09] MEDS: Cyanocobalamin (Vitamin B-12) 1,000 MCG TAB PO SCH (20:27)
[2022-04-09] MEDS: Atorvastatin Calcium 40 MG TAB PO SCH (20:27)
[2022-04-10 03:47] LABS: #Lymphocytes 0.3 thou/uL (1.20-3.40); #Monocytes 0.2 thou/uL (0.11-0.59); #Neutrophils 1.3 thou/uL (1.40-6.50); %Basophils 0.5 % (0.0-1.0); %Eosinophils 0.6 % (0.0-10.0); %Monocytes 11.1 % (0.0-10.0); %Neutrophils 72.9 % (42.0-75.0); Hemoglobin 7.5 g/dL (14.0-18.0); Mean Corpuscular HGB CONC 31.5 g/dL (32.0-36.0); Mean Corpuscular Hemoglobin 35.5 pg (27.0-31.0); Mean Platelet Volume 9.7 fL (7.4-10.4); Platelet Count 142 thou/uL (130-400); RBC Distribution Width 15.6 % (11.5-14.5); White Blood Cell (WBC) Count 1.8 thou/uL (4.8-10.8)
[2022-04-10 04:02] LABS: BUN (Urea Nitrogen) 61 mg/dL (8.4-25.7); Calc. Creatinine Clearance 35 mL/min (70-130); Calcium 9.1 mg/dL (7.8-10.44); Glucose 215 mg/dL (83-110)
[2022-04-10 04:11] LABS: Anion Gap 14 mmol/L (10-20); Carbon Dioxide 37 mmol/L (23-31); Chloride 92 mmol/L (98-107); Potassium 4.9 mmol/L (3.5-5.1); Sodium 138 mmol/L (136-145)
[2022-04-10] MEDS: Insulin Regular 300 UNITS/3 ML VIAL SC PRN ×3 (05:11→20:27)
[2022-04-10] MEDS: Furosemide 40 MG/4 ML VIAL SLOW IVP SCH (05:11)
[2022-04-10] MEDS: Aspirin 81 mg Enteric Coated Tablet PO SCH (07:44)
[2022-04-10] MEDS: Insulin Glargine 30 UNITS/0.3 ML VIAL SC SCH ×2 (07:44→20:23)
[2022-04-10] MEDS: Heparin 5,000 UNITS/ML VIAL SC SCH ×2 (07:45→20:22)
[2022-04-10] MEDS: Senokot S 8.6-50 MG TAB PO SCH ×2 (07:45→20:21)
[2022-04-10] MEDS: Folic Acid 1 MG TAB PO SCH ×2 (07:45→20:22)
[2022-04-10] MEDS: Magnesium Oxide 400 MG TAB PO SCH (07:45)
[2022-04-10] MEDS: predniSONE 20 MG TAB PO SCH (07:45)
[2022-04-10] MEDS: Finasteride 5 MG TAB PO SCH (07:45)
[2022-04-10] MEDS: Ferrous Sulfate 325 MG TAB PO SCH (07:45)
[2022-04-10] MEDS: Metoprolol Tartrate 25 MG TAB PO SCH ×2 (07:45→20:21)
[2022-04-10] MEDS: Polyethylene Glycol 3350 17 GM Packet PO SCH (09:25)
[2022-04-10 17:25] LABS: Glucose 602 mg/dL (83-110)
[2022-04-10] MEDS: Empagliflozin 10 MG TAB PO SCH (17:45)
[2022-04-10 18:57] LABS: Anion Gap 19 mmol/L (10-20); BUN (Urea Nitrogen) 67 mg/dL (8.4-25.7); Calc. Creatinine Clearance 28 mL/min (70-130); Calcium 9.4 mg/dL (7.8-10.44); Carbon Dioxide 33 mmol/L (23-31); Chloride 88 mmol/L (98-107); Potassium 5.1 mmol/L (3.5-5.1); Sodium 135 mmol/L (136-145)
[2022-04-10 19:10] LABS: Glucose 590 mg/dL (83-110)
[2022-04-10] MEDS ORDERED: HumaLOG 300 UNITS/3 ML VIAL SC SCH (20:00)
[2022-04-10] MEDS: Atorvastatin Calcium 40 MG TAB PO SCH (20:21)
[2022-04-10] MEDS: Cyanocobalamin (Vitamin B-12) 1,000 MCG TAB PO SCH (20:21)
[2022-04-11 04:21] LABS: BUN (Urea Nitrogen) 67 mg/dL (8.4-25.7); Calc. Creatinine Clearance 40 mL/min (70-130); Calcium 9.4 mg/dL (7.8-10.44)
[2022-04-11 04:31] LABS: Band 4 % (5-11); Lymphocytes 35 % (21-51); MDiff Complete? YES; Mean Corpuscular HGB CONC 32.1 g/dL (32.0-36.0); Mean Corpuscular Hemoglobin 36.1 pg (27.0-31.0); Mean Platelet Volume 9.9 fL (7.4-10.4); Monocytes 24 % (0-10); Neutrophil 37 % (42-75); Platelet Count 148 thou/uL (130-400); RBC Distribution Width 15.6 % (11.5-14.5); White Blood Cell (WBC) Count 3.5 thou/uL (4.8-10.8)
[2022-04-11 04:35] LABS: Anion Gap 16 mmol/L (10-20); Carbon Dioxide 35 mmol/L (23-31); Chloride 93 mmol/L (98-107); Potassium 4.4 mmol/L (3.5-5.1); Sodium 141 mmol/L (136-145)
[2022-04-11 04:38] LABS: Glucose 37 mg/dL (83-110)
[2022-04-11] MEDS: Polyethylene Glycol 3350 17 GM Packet PO SCH (10:04)
[2022-04-11] MEDS: Metoprolol Tartrate 25 MG TAB PO SCH ×2 (10:04→19:47)
[2022-04-11] MEDS: Folic Acid 1 MG TAB PO SCH ×2 (10:04→19:47)
[2022-04-11] MEDS: Ferrous Sulfate 325 MG TAB PO SCH (10:04)
[2022-04-11] MEDS: Magnesium Oxide 400 MG TAB PO SCH (10:04)
[2022-04-11] MEDS: Finasteride 5 MG TAB PO SCH (10:04)
[2022-04-11] MEDS: Senokot S 8.6-50 MG TAB PO SCH ×2 (10:05→19:47)
[2022-04-11] MEDS: predniSONE 20 MG TAB PO SCH (10:05)
[2022-04-11] MEDS: Aspirin 81 mg Enteric Coated Tablet PO SCH (10:05)
[2022-04-11] MEDS: Heparin 5,000 UNITS/ML VIAL SC SCH ×2 (10:05→19:48)
[2022-04-11] MEDS: Furosemide 40 MG TAB PO SCH (10:05)
[2022-04-11] MEDS: Insulin Glargine 30 UNITS/0.3 ML VIAL SC SCH ×2 (10:06→19:48)
[2022-04-11] MEDS ORDERED: predniSONE 20 MG TAB PO SCH ×2 (12:06→12:15)
[2022-04-11] MEDS ORDERED: cefTRIAXone\\ROCEPHIN 1 GM in Sodium Chloride 0.9% 100 ML IVPB SCH (12:30)
[2022-04-11 13:35] VITALS: BP 108/64
[2022-04-11] MEDS ORDERED: HumaLOG 300 UNITS/3 ML VIAL SC SCH (17:25)
[2022-04-11] MEDS: Empagliflozin 10 MG TAB PO SCH (17:58)
[2022-04-11] MEDS: Atorvastatin Calcium 40 MG TAB PO SCH (19:47)
[2022-04-11] MEDS: Cyanocobalamin (Vitamin B-12) 1,000 MCG TAB PO SCH (19:47)
[2022-04-12 03:07] LABS: Hemoglobin 8.2 g/dL (14.0-18.0); Mean Corpuscular HGB CONC 30.7 g/dL (32.0-36.0); Mean Corpuscular Hemoglobin 34.6 pg (27.0-31.0); Mean Platelet Volume 9.6 fL (7.4-10.4); Platelet Count 152 thou/uL (130-400); RBC Distribution Width 15.7 % (11.5-14.5); Red Blood Cell (RBC) Count 2.37 mill/uL (4.70-6.10); White Blood Cell (WBC) Count 3.7 thou/uL (4.8-10.8)
[2022-04-12 03:34] LABS: Band 6 % (5-11); Eosinophils 1 % (0-10); Lymphocytes 24 % (21-51); MDiff Complete? YES; Macrocytosis MODERATE=16-30 cells (100X) (0-5/hpf); Monocytes 15 % (0-10); Neutrophil 54 % (42-75)
[2022-04-12 03:54] LABS: Anion Gap 13 mmol/L (10-20); BUN (Urea Nitrogen) 62 mg/dL (8.4-25.7); Calc. Creatinine Clearance 44 mL/min (70-130); Calcium 9.6 mg/dL (7.8-10.44); Carbon Dioxide 37 mmol/L (23-31); Chloride 96 mmol/L (98-107); Potassium 4.2 mmol/L (3.5-5.1); Sodium 142 mmol/L (136-145)
[2022-04-12 03:59] LABS: Glucose 25 mg/dL (83-110)
[2022-04-12] MEDS ORDERED: predniSONE 20 MG TAB PO SCH (08:00)
[2022-04-12] MEDS: Furosemide 40 MG TAB PO SCH (08:31)
[2022-04-12] MEDS: Ferrous Sulfate 325 MG TAB PO SCH (08:31)
[2022-04-12] MEDS: Aspirin 81 mg Enteric Coated Tablet PO SCH (08:31)
[2022-04-12] MEDS: Magnesium Oxide 400 MG TAB PO SCH (08:31)
[2022-04-12] MEDS: Senokot S 8.6-50 MG TAB PO SCH (08:32)
[2022-04-12] MEDS: Polyethylene Glycol 3350 17 GM Packet PO SCH (08:32)
[2022-04-12] MEDS: Folic Acid 1 MG TAB PO SCH (08:32)
[2022-04-12] MEDS: Finasteride 5 MG TAB PO SCH (08:32)
[2022-04-12] MEDS: Metoprolol Tartrate 25 MG TAB PO SCH (08:32)
[2022-04-12] MEDS: Insulin Glargine 30 UNITS/0.3 ML VIAL SC SCH (08:33)
[2022-04-12] MEDS: Heparin 5,000 UNITS/ML VIAL SC SCH (08:35)
[2022-04-12 12:42] VITALS: TEMP 97
== END 2022-04-12 15:15 | disposition home health service (06) | DRG 291 ==
LOC: ERS 08:39 → ERHOLD 11:11 → CCU 13:48
PROVIDERS: ADMIT Family Medicine; ATTEND Family Medicine
PROC: 5A09557 Assistance with Respiratory Ventilation, Greater than 96 Consecutive Hours, Continuous Positive Airway Pressure (ICD-10-PCS; principal; 2022-04-06)
PROC: 30233N1 Transfusion of Nonautologous Red Blood Cells into Peripheral Vein, Percutaneous Approach (ICD-10-PCS; 2022-04-07)
DX: I13.0 Hypertensive heart and chronic kidney disease with heart failure and stage 1 through stage 4 chronic kidney disease, or unspecified chronic kidney disease (principal); I50.33 Acute on chronic diastolic (congestive) heart failure; J96.21 Acute and chronic respiratory failure with hypoxia; J96.22 Acute and chronic respiratory failure with hypercapnia; N17.9 Acute kidney failure, unspecified; J44.1 Chronic obstructive pulmonary disease with (acute) exacerbation; Z20.822 Contact with and (suspected) exposure to COVID-19; F17.210 Nicotine dependence, cigarettes, uncomplicated; I25.10 Atherosclerotic heart disease of native coronary artery without angina pectoris; E11.51 Type 2 diabetes mellitus with diabetic peripheral angiopathy without gangrene; E11.22 Type 2 diabetes mellitus with diabetic chronic kidney disease; R33.9 Retention of urine, unspecified; N18.30 Chronic kidney disease, stage 3 unspecified; D52.9 Folate deficiency anemia, unspecified; D51.9 Vitamin B12 deficiency anemia, unspecified; E78.5 Hyperlipidemia, unspecified; E87.5 Hyperkalemia; Z79.82 Long term (current) use of aspirin; Z79.899 Other long term (current) drug therapy; Z79.84 Long term (current) use of oral hypoglycemic drugs; I25.2 Old myocardial infarction; Z95.810 Presence of automatic (implantable) cardiac defibrillator; Z86.74 Personal history of sudden cardiac arrest; Z79.4 Long term (current) use of insulin; Z79.51 Long term (current) use of inhaled steroids; Z79.52 Long term (current) use of systemic steroids; Z98.890 Other specified postprocedural states
CPT/HCPCS: 36415; 36416; 36430; 36600; 71045; 80048; 80053; 80202; 81003; 81015; 82553; 82607; 82728; 82746; 82805; 83540; 83550; 83605; 83615; 83735; 83880; 84484; 85025; 85046; 86850; 86900; 86901; 87040; 87086; 93005; 94640; 94660; 94760; 96365; 96375; J0692; J0696; J1644; J1815; J1940; J2920; J3370; J3475; J3490; J7512; J7620; P9016

== ENCOUNTER 2023-07-15 07:31 | Outpatient (CLI) | payer MEDICARE, BC ==
[2023-07-15] MEDS ORDERED: Iopamidol-370 76% 500 ML MDV (1 ML CHARGE) ONE (09:40)
== END 2023-07-15 07:32 | disposition home or self-care (01) ==
LOC: BICCT 07:31
PROVIDERS: ATTEND Internal Medicine Critical Care Medicine
DX: R91.8 Other nonspecific abnormal finding of lung field (principal); J44.9 Chronic obstructive pulmonary disease, unspecified; J98.4 Other disorders of lung
CPT/HCPCS: 71260; 82565; Q9967

== ENCOUNTER 2023-11-29 07:00 | Outpatient (CLI) | payer MEDICARE, BC ==
[2023-11-29] MEDS ORDERED: Iopamidol 370 76% 100 ML VIAL ONE (11:48)
== END 2023-11-29 07:01 | disposition home or self-care (01) ==
LOC: BICCT 07:00
PROVIDERS: ATTEND Internal Medicine Critical Care Medicine
DX: J43.9 Emphysema, unspecified (principal); J98.4 Other disorders of lung; R91.8 Other nonspecific abnormal finding of lung field; J44.9 Chronic obstructive pulmonary disease, unspecified; M81.0 Age-related osteoporosis without current pathological fracture
CPT/HCPCS: 71260; 82565; Q9967

== ENCOUNTER 2024-03-25 07:28 | Outpatient (CLI) | payer MEDICARE, BC | END 2024-03-25 07:29 | disposition home or self-care (01) | LOC: BICCT 07:28 | PROVIDERS: ATTEND Internal Medicine Critical Care Medicine | DX: J96.12 Chronic respiratory failure with hypercapnia (principal); R91.1 Solitary pulmonary nodule; J94.8 Other specified pleural conditions; J43.9 Emphysema, unspecified; M47.9 Spondylosis, unspecified | CPT/HCPCS: 71260; 82565 ==

== ENCOUNTER 2024-10-05 09:10 | Outpatient (CLI) | payer MEDICARE, BC | END 2024-10-05 09:11 | disposition home or self-care (01) | LOC: CT 09:10 | PROVIDERS: ATTEND Internal Medicine Critical Care Medicine | DX: R91.8 Other nonspecific abnormal finding of lung field (principal) | CPT/HCPCS: 36415; 71260; 82565 ==

== ENCOUNTER 2024-12-07 10:00 | Outpatient (CLI) | payer MEDICARE, BC ==
[2024-12-07 10:47] LABS: Anion Gap 14 mmol/L (10-20); BUN (Urea Nitrogen) 32 mg/dL (8.4-25.7); Calc. Creatinine Clearance 0 mL/min (70-130); Calcium 9.4 mg/dL (7.8-10.44); Carbon Dioxide 24 mmol/L (23-31); Chloride 105 mmol/L (98-107); Estimated GFR 69; Glucose 115 mg/dL (83-110); Potassium 4.2 mmol/L (3.5-5.1); Sodium 139 mmol/L (136-145)
[2024-12-07 10:48] LABS: INR-International Normal Ratio 1.2; PTT 27.8 sec (22.9-36.1); Prothrombin Time 14.9 sec (12.0-14.7)
[2024-12-07 10:54] LABS: #Basophils 0.11 10x3/uL (0.0-0.2); %Basophils 3.9 % (0.0-1.0); %Eosinophils 1.1 % (0.0-10.0); %Lymphocytes 29.5 % (21.0-51.0); %Monocytes 11.2 % (0.0-10.0); %Neutrophils 53.6 % (42.0-75.0); Hematocrit 26.1 % (42.0-52.0); Hemoglobin 8.2 g/dL (14.0-18.0); Mean Corpuscular HGB CONC 31.4 g/dL (32.0-36.0); Mean Corpuscular Hemoglobin 37.3 pg (27.0-31.0); Mean Corpuscular Volume 118.6 fL (78.0-98.0); Platelet Count 214 10x3/uL (130-400); RBC Distribution Width 14.8 % (11.5-14.5)
[2024-12-07 11:34] LABS: Anisocytosis MARKED = >30 cells HPF (0-5); Macrocytosis MARKED = >30 cells HPF (0-5); Ovalocytes SLIGHT = 2-5 cells HPF (0-1); Platelet Adequacy Comment Platelets Normal; Polychromasia SLIGHT = 2-3 cells HPF (0-2); Schistocytes SLIGHT = 2-5 cells HPF (0-1); Tear Drops SLIGHT = 2-5 cells HPF (0-1)
== END 2024-12-07 11:00 | disposition home or self-care (01) ==
LOC: LABBT 10:00
PROVIDERS: ATTEND Internal Medicine Cardiovascular Disease
DX: Z01.812 Encounter for preprocedural laboratory examination (principal); I48.0 Paroxysmal atrial fibrillation
CPT/HCPCS: 80048; 85025; 85610; 85730

== ENCOUNTER 2024-12-16 08:26 | Day surgery (SDC) | payer MEDICARE, BC ==
[2024-12-07 09:20] VITALS: BMI 21.4
[2024-12-16] MEDS ORDERED: PROPOFOL 200 MG/20 ML VIAL ONE (12:33)
[2024-12-16] MEDS ORDERED: PHENYLEPHRINE-NS 100 MCG/ML 10 ML SYRINGE ONE (12:33)
[2024-12-16] MEDS ORDERED: Lidocaine 1% PF 5 ML VIAL ONE (12:33)
== END 2024-12-16 14:33 | disposition home or self-care (01) ==
LOC: SDC 08:26
PROVIDERS: ATTEND Internal Medicine Cardiovascular Disease
PROC: B24BZZ4 Ultrasonography of Heart with Aorta, Transesophageal (ICD-10-PCS; principal; 2024-12-16)
DX: I48.0 Paroxysmal atrial fibrillation (principal); I11.9 Hypertensive heart disease without heart failure; I25.10 Atherosclerotic heart disease of native coronary artery without angina pectoris; E11.9 Type 2 diabetes mellitus without complications; E78.5 Hyperlipidemia, unspecified; K21.9 Gastro-esophageal reflux disease without esophagitis; Z87.891 Personal history of nicotine dependence; Z95.5 Presence of coronary angioplasty implant and graft; Z95.818 Presence of other cardiac implants and grafts; Z79.01 Long term (current) use of anticoagulants; Z79.82 Long term (current) use of aspirin; Z79.02 Long term (current) use of antithrombotics/antiplatelets; Z79.899 Other long term (current) drug therapy
CPT/HCPCS: 93312; J2704

== ENCOUNTER 2025-06-01 07:02 | Day surgery (SDC) | payer MEDICARE, BC ==
[2025-06-01 08:34] LABS: #Basophils 0.07 10x3/uL (0.0-0.2); #Eosinophils 0.04 10x3/uL (0.0-0.7); #Monocytes 0.41 10x3/uL (0.11-0.59); #Neutrophils 0.94 10x3/uL (1.40-6.50); %Basophils 3.3 % (0.0-1.0); %Eosinophils 1.9 % (0.0-10.0); %Lymphocytes 31.0 % (21.0-51.0); %Monocytes 19.2 % (0.0-10.0); %Neutrophils 44.1 % (42.0-75.0); Hematocrit 24.9 % (42.0-52.0); Hemoglobin 7.6 g/dL (14.0-18.0); Mean Corpuscular Hemoglobin 33.2 pg (27.0-31.0); Mean Corpuscular Volume 108.7 fL (78.0-98.0); Platelet Count 206 10x3/uL (130-400); Red Blood Cell (RBC) Count 2.29 mill/uL (4.70-6.10); White Blood Cell (WBC) Count 2.13 10x3/uL (4.8-10.8)
[2025-06-01 08:52] LABS: INR-International Normal Ratio 1.2; Prothrombin Time 15.0 sec (12.0-14.7)
[2025-06-01 08:53] LABS: PTT 29.6 sec (22.9-36.1)
[2025-06-01 09:24] LABS: Anisocytosis MODERATE=16-30 cells HPF (0-5); Burr Cells SLIGHT = 2-5 cells HPF (0-1); Macrocytosis SLIGHT = 6-15 cells HPF (0-5); Platelet Adequacy Comment Platelets Normal; Poikilocytosis SLIGHT = 6-15 cells HPF (0-5); Polychromasia SLIGHT = 2-3 cells HPF (0-2); Schistocytes SLIGHT = 2-5 cells HPF (0-1); Stomatocytes SLIGHT = 2-5 cells HPF (0-1)
[2025-06-01] MEDS ORDERED: Sodium Bicarbonate 2.5 MEQ/5 ML SDV ONE (09:31)
[2025-06-01] MEDS ORDERED: Lidocaine 1% PF 5 ML VIAL ONE (09:31)
== END 2025-06-01 11:50 | disposition home or self-care (01) ==
LOC: CT 07:02
PROVIDERS: ATTEND Internal Medicine Hematology & Oncology
PROC: 079T3ZX Drainage of Bone Marrow, Percutaneous Approach, Diagnostic (ICD-10-PCS; principal; 2025-06-01)
DX: D75.89 Other specified diseases of blood and blood-forming organs (principal); D50.8 Other iron deficiency anemias; I11.0 Hypertensive heart disease with heart failure; I50.22 Chronic systolic (congestive) heart failure; E11.9 Type 2 diabetes mellitus without complications; E78.5 Hyperlipidemia, unspecified; Z95.0 Presence of cardiac pacemaker; Z87.891 Personal history of nicotine dependence; Z79.82 Long term (current) use of aspirin; Z79.84 Long term (current) use of oral hypoglycemic drugs; Z79.899 Other long term (current) drug therapy
CPT/HCPCS: 36000; 38222; 77002; 77012; 85025; 85097; 85610; 85730; C1830; 36415; 88184; 88185; 88189; 88237; 88264; 88280; 88305; 88311; 88313; 88341; 88342; J3010

== ENCOUNTER 2025-06-04 09:29 | Outpatient (CLI) | payer MEDICARE, BC ==
[2025-06-04 11:24] LABS: INR-International Normal Ratio 1.2; PTT 30.2 sec (22.9-36.1); Prothrombin Time 15.8 sec (12.0-14.7)
[2025-06-04 11:27] LABS: Anion Gap 13 mmol/L (10-20); BUN (Urea Nitrogen) 23 mg/dL (8.4-25.7); Calc. Creatinine Clearance 0 mL/min (70-130); Calcium 9.1 mg/dL (7.8-10.44); Carbon Dioxide 23 mmol/L (23-31); Chloride 105 mmol/L (98-107); Glucose 121 mg/dL (83-110); Potassium 5.0 mmol/L (3.5-5.1); Sodium 136 mmol/L (136-145)
[2025-06-04 12:19] LABS: #Basophils 0.09 10x3/uL (0.0-0.2); #Eosinophils Less than 0.03 10x3/uL (0.0-0.7); #Monocytes 0.43 10x3/uL (0.11-0.59); #Neutrophils 0.97 10x3/uL (1.40-6.50); %Basophils 3.8 % (0.0-1.0); %Eosinophils 0.8 % (0.0-10.0); %Lymphocytes 32.6 % (21.0-51.0); %Monocytes 18.2 % (0.0-10.0); %Neutrophils 41.2 % (42.0-75.0); Hematocrit 25.8 % (42.0-52.0); Hemoglobin 7.9 g/dL (14.0-18.0); Mean Corpuscular Hemoglobin 33.9 pg (27.0-31.0); Mean Corpuscular Volume 110.7 fL (78.0-98.0); Platelet Count 189 10x3/uL (130-400); Red Blood Cell (RBC) Count 2.33 mill/uL (4.70-6.10); White Blood Cell (WBC) Count 2.36 10x3/uL (4.8-10.8)
[2025-06-04 13:04] LABS: Anisocytosis MODERATE=16-30 cells HPF (0-5); Macrocytosis MODERATE=16-30 cells HPF (0-5); Ovalocytes SLIGHT = 2-5 cells HPF (0-1); Platelet Adequacy Comment Platelets Normal; Polychromasia SLIGHT = 2-3 cells HPF (0-2); Schistocytes SLIGHT = 2-5 cells HPF (0-1)
== END 2025-06-04 09:30 | disposition home or self-care (01) ==
LOC: LABBT 09:29
PROVIDERS: ATTEND Internal Medicine Cardiovascular Disease
DX: Z01.812 Encounter for preprocedural laboratory examination (principal); I48.0 Paroxysmal atrial fibrillation; D64.9 Anemia, unspecified
CPT/HCPCS: 80048; 85025; 85610; 85730

== ENCOUNTER → 2025-07-16 | Day surgery (SDC) | payer MEDICARE, BC ==
[~2025-07-16] MED LIST: Acetaminophen 500 MG TAB ONE; diphenhydrAMINE 25 MG CAP ONE
[2025-07-16] MEDS: diphenhydrAMINE 25 MG CAP PO SCH (11:10)
[2025-07-16] MEDS: Acetaminophen 500 MG TAB PO SCH (11:11)
[2025-07-16 11:57] VITALS: TEMP 98.1
[2025-07-16 14:47] VITALS: BP 116/58
== END ==
LOC: ONC/OP 10:33
PROVIDERS: ATTEND Internal Medicine Hematology & Oncology
DX: D64.9 Anemia, unspecified (principal)
CPT/HCPCS: 36430; 86850; 86900; 86901; 86920; P9016

== ENCOUNTER 2025-08-31 08:33 | Day surgery (SDC) | payer MEDICARE, OTHER ==
[2025-08-31] MEDS ORDERED: diphenhydrAMINE 25 MG CAP ONE (09:07)
[2025-08-31] MEDS ORDERED: Acetaminophen 500 MG TAB ONE (09:07)
[2025-08-31] MEDS: Acetaminophen 500 MG TAB PO SCH (09:08)
[2025-08-31] MEDS: diphenhydrAMINE 25 MG CAP PO SCH (09:08)
[2025-08-31 13:02] VITALS: BP 114/56; TEMP 97.9
== END 2025-08-31 13:02 | disposition home or self-care (01) ==
LOC: ONC/OP 08:33
PROVIDERS: ATTEND Internal Medicine Hematology & Oncology
DX: D64.9 Anemia, unspecified (principal); D69.6 Thrombocytopenia, unspecified
CPT/HCPCS: 36430; 86850; 86900; 86901; 86920; P9016

== ENCOUNTER 2025-09-28 09:53 | Day surgery (SDC) | payer MEDICARE, OTHER, BC ==
[2025-09-28] MEDS ORDERED: diphenhydrAMINE 25 MG CAP ONE (11:03)
[2025-09-28] MEDS ORDERED: Acetaminophen 500 MG TAB ONE (11:03)
[2025-09-28] MEDS: Acetaminophen 500 MG TAB PO SCH (11:24)
[2025-09-28] MEDS: diphenhydrAMINE 25 MG CAP PO SCH (11:24)
[2025-09-28 17:04] VITALS: BP 149/66; TEMP 98.2
== END 2025-09-28 14:58 | disposition home or self-care (01) ==
LOC: ONC/OP 09:53
PROVIDERS: ATTEND Internal Medicine Hematology & Oncology
DX: D64.9 Anemia, unspecified (principal); D69.59 Other secondary thrombocytopenia
CPT/HCPCS: 36430; 86850; 86900; 86901; 86920; P9016

== ENCOUNTER 2025-10-22 08:54 | Day surgery (SDC) | payer MEDICARE ==
[2025-10-22] MEDS ORDERED: Acetaminophen 500 MG TAB PO SCH (09:00)
[2025-10-22] MEDS ORDERED: diphenhydrAMINE 25 MG CAP PO SCH (09:00)
[2025-10-22 12:57] VITALS: BP 120/56; TEMP 97.9
== END 2025-10-22 12:58 | disposition home or self-care (01) ==
LOC: ONC/OP 08:54
PROVIDERS: ATTEND Internal Medicine Hematology & Oncology
DX: D64.9 Anemia, unspecified (principal); Z87.891 Personal history of nicotine dependence
CPT/HCPCS: 36430; 86850; 86900; 86901; 86920; P9016